=== PATIENT | female | born 1945 | race Caucasian/White ===

== ENCOUNTER 2020-12-29 12:29 | Inpatient (IN) | payer MEDICARE, OTHER, SELFPAY ==
[2020-12-29] VITALS (31 sets, daily range): BP systolic 162–215; BP diastolic 72–111; PULSE 76–101; RESP 13–23; TEMP 36.4–36.6; O2SAT 92–98; BMI 28.3
--- NOTE | ~2020-12-29 | CT_ITS ---
EXAMINATION: CTA chest PE protocol EXAM DATE: 12/29/2020 15:49 INDICATION: Shortness of breath, elevated D-dimer . Breast cancer. TECHNIQUE: Spiral CTA of the chest (pulmonary arteries) was performed with 100 cc Omnipaque 350 intr avenous contrast injection. Images were acquired during the pulmonary arterial phase. Coronal maxi mum intensity projection 3D-reconstructions were created by the technologist on dedicated workstation . Axial, coronal and sagittal reformatted images were reviewed. The dose-length product (DLP) for t his examination was 244.82 mGy-cm. The exposure was tailored according to patient size (auto mA exp osure control), and iterative reconstruction (ASIR) was used as additional dose reduction technique. There is no prior study for comparison. FINDINGS: There are no pulmonary emboli in the 1st through 3rd order (central and interlobar) pulmon lenin arteries. Some loss of attenuation in the segmental pulmonary arteries due to respiratory motion , but no intraluminal filling defects suspected. No thoracic aortic dissection. The lungs are louise r. Small to moderate right, trace left pleural effusions. Some scattered bibasilar linear subsegmen emery atelectasis. Basilar intralobular septal thickening and groundglass opacities appearance most con sistent with pulmonary edema. Left apical opacity probably scarring. Tracheobronchial tree is patent. There is no mediastinal, hilar or axillary lymphadenopathy. There is no pneumothorax. There is cardiomegaly. There is mild coronary arterial calcification, arterial sclerosis. Dense mitral annul ar calcifications. Contrast refluxing into the IVC. Liver cysts. There is thoracic spondylosis with out osteoblastic or osteolytic lesions identified. Left axillary surgical clips. IMPRESSION: 1. Findings consistent with CHF exacerbation. 2. Small right, trace left pleural effusions. 3. Bibasilar linear atelectasis. 4. No pulmonary emboli. Reviewed, dictated and finalized at location A.
--- NOTE | ~2020-12-29 | US_ITS ---
EXAMINATION: US venous doppler [facility] DATE: 12/31/2020 11:58 INDICATION: Bilateral lower limb swelling TECHNIQUE: Silverio scale images without and with compression and Doppler images of the bilateral lower e xtremity veins were obtained. COMPARISON: None FINDINGS: The right common femoral vein, profunda femoral vein, femoral vein, popliteal vein, peroneal trunk, p osterior tibial veins, and greater saphenous vein are patent. The left common femoral vein, profunda femoral vein, femoral vein, popliteal vein, peroneal trunk, po sterior tibial veins, and greater saphenous vein are patent. IMPRESSION: 1. Patent bilateral lower extremity veins. No evidence of deep venous thrombosis. Reviewed, dictated and finalized at location A. IMPRESSION: 1. Patent bilateral lower extremity veins. No evidence of deep venous thrombosi s.
--- NOTE | ~2020-12-29 | XR_ITS ---
EXAMINATION: XR chest 2V DATE: 12/29/2020 12:51 INDICATION: Shortness of breath and hypertension, history of breast cancer TECHNIQUE: PA and lateral views of the chest are obtained. COMPARISON: 06/03/2016 FINDINGS: The lungs are free of acute opacities. There are small pleural effusions. Pneumothorax is i dentified. The cardiomediastinal silhouette is normal. There is mild thoracic spondylosis. Deformity of the left breast and surgical clips in the left axilla are consistent with treatment for breast can cer. IMPRESSION: 1. Small pleural effusions. Reviewed, dictated and finalized at location A. IMPRESSION: 1. Small pleural effusions.
--- NOTE | 2020-12-29 12:31 | ECG_ITS ---
Measurements Intervals [place] Rate: 78 P: 66 [place]: 159 QRS: -15 QRSD: 106 T: 26 QT: 390 QTc: 445 Interpretive Statements SINUS RHYTHM POSSIBLE LEFT ATRIAL ENLARGEMENT INCOMPLETE RIGHT BUNDLE BRANCH BLOCK LEFT VENTRICULAR HYPERTROPHY CANNOT RULE OUT SEPTAL INFARCT, AGE INDETERMINATE BASELINE ARTIFACT- I, II, AVR ABNORMAL ECG Electronically Signed On 12-29-2020 20:51:18 CDT by Hari Brown D.O.
[2020-12-29 12:52] LABS: Basophils Percent Auto 0.4 % (0.2-1.2); Eosinophils Absolute Auto 0.1 K/mm3 (0-0.3); Eosinophils Percent Auto 1.4 % (0-4.4); Hematocrit 28.8 % (37.0-47.0); Hemoglobin 9.5 g/dL (12.0-15.0); Immature Granulocyte Absolute 0.02 K/mm3 (0.00-0.031); Immature Granulocyte Percent A 0.3 % (0-0.5); Lymphocytes Absolute Auto 1.49 K/mm3 (0.9-3.2); Lymphocytes Percent Auto 20.6 % (18.3-44.2); Mean Corpuscular Hemoglobin 30.5 pg (26-34); Mean Corpuscular Volume 92.6 fl (80-100); Mean Platelet Volume 12.9 fl (7.4-10.4); Monocytes Absolute Auto 0.3 K/mm3 (0.1-0.6); Monocytes Percent Auto 4.6 % (2.6-8.5); Neutrophils Absolute Auto 5.3 K/mm3 (1.3-6.7); Neutrophils Percent Auto 72.7 % (45.5-73.1); Platelet Count Result 204 k/mm3 (150-375); Red Blood Count 3.11 M/mm3 (4.2-5.4); Red Cell Distribution Width 13.4 % (11.5-14.5); White Blood Count 7.3 K/mm3 (4.5-10.0)
[2020-12-29 13:02] LABS: Anion Gap 9 mmol/L (8-16); Blood Urea Nitrogen 28 mg/dL (7-17); Calcium 9.9 mg/dL (8.4-10.2); Carbon Dioxide 25 mmol/L (22-30); Chloride 107 mmol/L (98-107); Estimated CRCL calculation 45 ml/min; Estimated Glomerular Filt Rate > 60; Glucose 91 mg/dL (65-105); Sodium 141 mmol/L (137-145)
[2020-12-29 13:13] LABS: Anisocytosis 1+ (NORMAL); Ovalocytes 1+ (NORMAL); Platelet Estimate Adequate (Adequate)
--- NOTE | 2020-12-29 13:33 | PC.NURSE ---
lab, baylee, Pavan I and BNP
[2020-12-29] MEDS: IPRATROPIUM BR 0.02% INH SOLN 0.5 MG/2.5 ML VIAL INHALATION (13:38)
[2020-12-29] MEDS: ALBUTEROL SULFATE NEB 2.5 MG/0.5 ML INH 5 MG INHALATION (13:38)
[2020-12-29 13:42] LABS: Alveolar/Arterial O2 Gradient 33.1 mmHg; Base Excess ABG -0.4 mEq/l (+/-2.0); Carboxyhemoglobin 0.3 % THb (0-2.0); Fractional Inspired Oxygen 21 %; HCO3 ABG 23.7 mEq/l (22.0-26.0); Methemoglobin ABG 0.2 %THb (0-1.5); Oxygen Content ABG 13.5 %vol (16.0-22.0); Oxygen Saturation ABG 95.1 % (95.0-100.0); Oxyhemoglobin 93.7 % THb (90.0-100.0); PCO2 ABG 36.8 mmHg (35.0-45.0); PO2 ABG 72.6 mmHg (80.0-100.0); PO2 FiO2 Ratio Arterial Blood 3.46 %; Reduced Hemoglobin 5.8 %THb (0-5.0); Total Hemoglobin 10.2 g/dL (12.0-18.0); pH ABG 7.427 (7.350-7.450)
[2020-12-29 13:43] LABS: Device ROOM AIR; Modified Allen's Test Pass; Site Drawn RIGHT RADIAL
--- NOTE | 2020-12-29 13:51 | ED.SOB ---
HPI - SOB/Dyspnea General Chief Complaint: Shortness of Breath/Dyspnea Stated Complaint: having trouble breathing Time Seen by Provider: 12/29/20 13:14 Source: patient Mode of arrival: ambulatory Limitations: no limitations History of Present Illness HPI Narrative: Patient is a 75-year-old female complaining of shortness of breath, wheezing, started yesterday. Patient denies any cough, congestion, chest pain, abdominal pain, nausea, vomiting, fever or chills. Patient states that she is actually feeling better and that his shortness of breath almost resolved. Related Data Home Medications Medication Instructions Recorded Confirmed ascorbic acid (vitamin C) 500 mg 500 mg PO DAILY 07/20/20 12/13/20 tablet aspirin 81 mg tablet,delayed 81 mg PO DAILY 07/20/20 12/13/20 release calcium carbonate 600 mg calcium 600 mg PO DAILY 07/20/20 12/13/20 (1,500 mg) tablet cholecalciferol (vitamin D3) 125 125 mcg PO DAILY 07/20/20 12/13/20 mcg (5,000 unit) capsule garlic 1,000 mg capsule 1,000 mg PO DAILY 07/20/20 12/13/20 magnesium gluconate 27 mg 27 mg PO DAILY tablet 07/20/20 12/13/20 magnesium (500 mg) tablet multivitamin 1 tablet PO DAILY 07/20/20 12/13/20 omega-3 fatty acids 1,000 mg 1,000 mg PO DAILY 07/20/20 12/13/20 capsule Allergies Allergy/AdvReac Type Severity Reaction Status Date / Time No Known Allergies Allergy Verified 12/29/20 12:30 Review of Systems Review of Systems: All systems reviewed & are unremarkable except as noted in HPI and below Constitutional: Constitutional: Denies body ache(s), Denies chills, Denies excessive sweating, Denies fatigue, Denies fever(s), Denies headache(s), Denies lethargy, Denies malaise, Denies weakness and Denies weight loss Eyes: Eyes: Denies blurry vision, Denies change in vision and Denies loss of vision ENT: Denies dizziness, Denies ear discharge, Denies headache(s), Denies lip swelling, Denies epistaxis, Denies nasal congestion, Denies neck pain, Denies throat swelling and Denies tongue swelling Cardiovascular: Cardiovascular: Denies chest pain, Denies chest pain at rest, Denies chest pain with activity, Denies diaphoresis, Denies rapid heart rate, Denies edema, Denies irregular heart rhythm, Denies lightheadedness and Denies palpitations Respiratory: Respiratory: Denies chest congestion, Denies cough and Denies hemoptysis Gastrointestinal: Gastrointestinal: Denies abdominal pain, Denies melena, Denies hematochezia, Denies diarrhea, Denies nausea, Denies vomiting and Denies hematemesis Musculoskeletal: Musculoskeletal: Denies abnormal gait, Denies deformity, Denies joint swelling, Denies limited range of motion, Denies neck pain and Denies numbness Neurologic: Denies Abnormal speech present, Denies abnormal gait, Denies confusion, Denies dizziness, Denies headache(s), Denies focal weakness, Denies loss of vision, Denies numbness, Denies Other visual disturbances, Denies Sensory deficit (Neuro) and Denies weakness Psychiatric: Psychiatric: Denies confusion, Denies depression, Denies auditory hallucinations, Denies homicidal ideation and Denies suicidal ideation Endocrine: Endocrine: Denies cold intolerance, Denies excessive sweating, Denies fatigue, Denies heat intolerance and Denies palpitations Hematologic/Lymphatic: Hematologic/Lymphatic: Denies easy bleeding and Denies easy bruising Allergic/Immunologic: Allergic/Immunologic: Denies lip swelling, Denies throat swelling and Denies tongue swelling PMFSH Past Medical History Medical History Breast cancer Fracture of wrist Hx of skin malignancy Hypertension Jugular venous distension (JVD) Skin cancer Vitamin D deficiency, unspecified Surgical History Surgical History History of carpal tunnel surgery 2001 & 2002 History of lumpectomy of left breast 1994 Hx of cataract extraction 2009; bilateral
[2020-12-29 13:53] LABS: NT Pro B Type Natriuretic Pept 6910 pg/mL (5-100); Troponin I 0.018 ng/mL (0.000-0.034)
[2020-12-29 13:56] LABS: INR 0.9; Partial Thromboplastin Time 24.3 SECONDS (22.3-36.8); Prothrombin Time 11.8 Seconds (11.1-14.7)
[2020-12-29 13:59] LABS: D Dimer 1.95 ug/mL (<0.48)
[2020-12-29] MEDS: methylPREDNISolone SOD SUCC 125 MG VIAL IV PUSH (14:07)
[2020-12-29 14:25] LABS: Lactic Acid Reflex 1.5 mmol/L (0.7-2.1)
--- NOTE | 2020-12-29 15:58 | PC.NURSE ---
In to update and check on patient, note sp02 89% on room air with good pleth. Pt placed on 2L/NC and Dr. Kumari made aware.
[2020-12-29] MEDS: FUROSEMIDE INJ 40 MG/4 ML VIAL IV PUSH ×2 (16:41→22:27)
--- NOTE | 2020-12-29 16:43 | PC.NURSE ---
Marlena given IVP for fluid. Dr. Kumari at bedside discussing plan of care. Commode and hat to measure urine brought to bedside.
[2020-12-29] MEDS: LABETALOL HCL INJ 100 MG/20 ML VIAL 20 MG IV PUSH (18:12)
--- NOTE | 2020-12-29 19:52 | PC.NURSE ---
This patient, Terri Oconnell, was admitted to IMU Room 201-01. Patient/family oriented to hospital policies and general routines including ID bracelet, bed and alarms, visiting hours, pain management, procedures, bathroom and other care routines, personal items, smoking policy, room service/diet, and visiting hours. Information on how to activate the Rapid Response Team has been discussed. Patient/Family are encouraged to report perceived risks to care and to ask questions if they do not understand what they are told or what they should do.
--- NOTE | 2020-12-29 21:16 | PM.IMHP ---
H&P: HPI History of Present Illness Date/Time: 12/29/20 21:16Nita is a 75-year-old female patient who has a past medical history of hypertension. The patient denies any history of CHF. The patient stated that she had some edema to her lower extremities approximately 1 year's on the started getting her blood pressure medication. The patient stated that yesterday she started to become short of breath. And her legs have become edematous. She has no history of any DVTs. She does have lymphedema in her left arm due to lumpectomy from her breast cancer. The patient's blood pressure was elevated in the emergency room. She had already taken her lisinopril metoprolol today. She was given labetalol for elevated blood pressure in the emergency room. She was given Solu-Medrol a neb treatment in the emergency room as well as IV Lasix. Chest x-ray was read as small pleural effusions. CTA was read as findings consistent with CHF exacerbation. Small right trace the pleural effusions. Bibasilar linear atelectasis. No pulmonary emboli. The patient is being admitted to observation status on the date of surgery was 12/29/2020 Chief Complaint: shortness of breath Review of Systems Review of Systems: All systems reviewed & are unremarkable except as noted in HPI and below Constitutional: Constitutional: Reports as per HPI and Reports no additional constitutional complaints Eyes: Eyes: Reports as per HPI and Reports no additional eye complaints ENT: Reports system reviewed and no additional complaints, except as documented and Reports Normal hearing present Cardiovascular: Cardiovascular: Reports no additional cardiovascular complaints Respiratory: Respiratory: Reports no additional respiratory complaints and Reports no additional respiratory complaints Gastrointestinal: Gastrointestinal: Reports as per HPI and Reports no additional gastrointestinal complaints Musculoskeletal: Musculoskeletal: Reports no additional musculoskeletal complaints Integumentary/Breasts: Skin/Breast: Reports system reviewed and no additional complaints, except as docu and Reports as per HPI Neurologic: Reports system reviewed and no additional complaints, except as documented, Reports as per HPI and Reports Normal hearing present Psychiatric: Psychiatric: Reports no additional psychiatric complaints and Reports as per HPI Endocrine: Endocrine: Reports no additional endocrine complaints Hematologic/Lymphatic: Hematologic/Lymphatic: Reports no additional hematologic/lymphatic complaints Allergic/Immunologic: Allergic/Immunologic: Reports no additional allergic/immunologic complaints [facility] Past Medical History Medical History (Updated 12/29/20 @ 21:23 by Keke Edwards NP) Breast cancer chemo and radiation Fracture of wrist Hx of skin malignancy Hypertension Hypothyroidism Jugular venous distension (JVD) Skin cancer Vitamin D deficiency, unspecified Surgical History Surgical History (Updated 12/29/20 @ 21:23 by Keke Edwards NP) History of carpal tunnel surgery 2001 & 2002 History of lumpectomy of left breast 1994 History of surgery on wrist due to a fracture Hx of cataract extraction 2009; bilateral Family History Family History (Updated 12/29/20 @ 20:10 by Mercedez Paez RN) Mother , Heart, Colon CHF (congestive heart failure) Colon cancer Father , Heart, Prostate FH: CABG (coronary artery bypass surgery) Social History Social History (Updated 12/29/20 @ 21:26 by Keke Edwards NP) Social History: patient is a lifelong nonsmoker. the patient lives with her and they have been for 51 years now. They have no children. 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 She is a lifelong nonsmoker. She does not use any alcohol marijuana or illicit drugs. Smoking status: Never smoker Second hand tobacco smoke exposure: No Alcohol intake: never Substance use: kris
[2020-12-29] MEDS: lisinopriL 20 MG TABLET PO (22:27)
[2020-12-30] VITALS (12 sets, daily range): BP systolic 140–154; BP diastolic 63–71; PULSE 63–87; RESP 16–18; TEMP 36–36.6; O2SAT 97–100
[2020-12-30 05:07] LABS: Alanine Aminotransferase 17 U/L (4-35); Albumin Level 3.1 g/dL (3.5-5.1); Alkaline Phosphatase 43 U/L (38-126); Anion Gap 8 mmol/L (8-16); Aspartate Amino Transferase 29 U/L (14-36); Bilirubin,Total 0.4 mg/dL (0.2-1.3); Blood Urea Nitrogen 35 mg/dL (7-17); Calcium 8.7 mg/dL (8.4-10.2); Carbon Dioxide 22 mmol/L (22-30); Chloride 107 mmol/L (98-107); Estimated CRCL calculation 41 ml/min; Estimated Glomerular Filt Rate 54; Glucose 148 mg/dL (65-105); Magnesium 1.9 mg/dL (1.6-2.3); Potassium 3.9 mmol/L (3.4-5.0); Sodium 137 mmol/L (137-145)
[2020-12-30] MEDS: LEVOTHYROXINE SODIUM 25 MCG TABLET PO (06:05)
[2020-12-30 06:14] LABS: Basophils Percent Auto 0.2 % (0.2-1.2); Hematocrit 27.3 % (37.0-47.0); Hemoglobin 8.6 g/dL (12.0-15.0); Immature Granulocyte Absolute 0.03 K/mm3 (0.00-0.031); Immature Granulocyte Percent A 0.5 % (0-0.5); Lymphocytes Absolute Auto 0.56 K/mm3 (0.9-3.2); Lymphocytes Percent Auto 8.8 % (18.3-44.2); Mean Corpuscular HGB Conc 31.5 g/dl (32-36); Mean Corpuscular Hemoglobin 30.1 pg (26-34); Mean Corpuscular Volume 95.5 fl (80-100); Monocytes Absolute Auto 0.2 K/mm3 (0.1-0.6); Monocytes Percent Auto 3.3 % (2.6-8.5); Neutrophils Absolute Auto 5.6 K/mm3 (1.3-6.7); Neutrophils Percent Auto 87.2 % (45.5-73.1); Platelet Count Result 165 k/mm3 (150-375); Red Blood Count 2.86 M/mm3 (4.2-5.4); Red Cell Distribution Width 13.4 % (11.5-14.5); White Blood Count 6.4 K/mm3 (4.5-10.0)
[2020-12-30] MEDS: ENOXAPARIN 40 MG/0.4 ML SYRINGE SUB-Q (09:03)
[2020-12-30] MEDS: ASPIRIN 81 MG ENTERIC TABLET PO (09:04)
[2020-12-30] MEDS: OMEGA 3 POLYUNSAT FATTY ACIDS 1 GM CAP PO (09:04)
[2020-12-30] MEDS: METOPROLOL SUCCINATE EXT REL 50 MG TABCR PO (09:04)
[2020-12-30] MEDS: CHOLECALCIFEROL 1,000 UNITS TABLET 5000 UNITS PO (09:04)
[2020-12-30] MEDS: CALCIUM CARBONATE (OSCAL) 500 MG TABLET PO (09:05)
[2020-12-30] MEDS: MULTIVITAMINS THERAPEUTIC TAB (*BKC) 1 TABLET PO (09:05)
[2020-12-30] MEDS: MAGNESIUM 27 MG TABLET (500 MG MAG GLUCONATE) PO (09:05)
[2020-12-30] MEDS: lisinopriL 20 MG TABLET PO ×2 (09:05→17:34)
[2020-12-30] MEDS: ASCORBIC ACID 500 MG TABLET PO (09:05)
[2020-12-30] MEDS: FUROSEMIDE INJ 40 MG/4 ML VIAL IV PUSH (09:22)
--- NOTE | 2020-12-30 09:52 | PM.CNCAR ---
Assessment and Plan Additional Plan this is a 75-year-old lady with: Longstanding hypertension being treated with lisinopril and metoprolol as well as p.r.n. furosemide for edema. She came into the hospital with increasing shortness of breath and some mild lower extremity edema which appears to have rib been resolved very quickly with intravenous furosemide. One would therefore most likely presume this are is due to hypertensive heart disease and probably diastolic dysfunction. I do not hear any physical exam evidence to suggest systolic failure. The patient of course should have an echocardiogram done to assess the cardiac structural basis of this but this being the 30 of December holiday and this ultrasound is clearly not an urgent matter I do not expect this is going to happen today. Patient in clinically appears to be stable enough to be discharged and have this evaluation done as an outpatient but obviously ultrasound would not happen nearly as quickly in the outpatient setting. It is the patient's strong preference to have this done sooner than that so we will keep her in the hospital the ultrasound will be done tomorrow and I will leave further recommendations after Review of that exam. In the meantime I am going to stop her IV furosemide she appears to be euvolemic at this moment and I believe we would precipitate a prerenal state of we keep giving her IV furosemide any further. I will switch her to an oral regimen starting tomorrow. Thank you for asking me to see her in consultation Carlo Horne MD [facility] History of Present Illness History of Present Illness Consult date/time: 12/30/20 09:52 Reason For Visit: acute chf Narrative: This is a 75-year-old woman that I am seeing at the request of the hospitalist this morning she was admitted to the hospital yesterday evening after being seen in the emergency room with complaining of shortness of breath and was felt to have some evidence of congestive heart failure. She does not have any previous history of any cardiac problems that she is aware of. This is a lady with longstanding hypertension and a previous history of breast cancer. She states she was under the care of Dr. Savage for many years prior to his fci and was treated medically for hypertension. She states she was her impression her blood pressure is generally well controlled when she would have follow-up visits and there was no concern ever regarding the condition of her heart. She stated that last summer she did have an episode where she had some increasing lower extremity edema that was not a matter of great concern but some furosemide was prescribed which then she was told to take in a p.r.n. fashion. Because of the lower extremity edema amlodipine was taken off of her medication list at that time as well. She has denies any symptoms of chest pain pressure or heaviness she denies any orthopnea or PND. In the last 1-2 weeks he is having more difficulty with shortness of breath and she was coughing couple of nights this week where she sat up in a recliner. She thought she might have pneumonia so she went to an urgent care center yesterday after evaluation she was sent to the emergency room where she was given the diagnosis of CHF and admitted to the hospital. Her chest x-ray shows a normal-appearing cardiac silhouette some very small pleural effusions and postop changes from mastectomy. She was given some intravenous furosemide in the emergency room and another dose this morning she said this has completely resolved her shortness of breath and she feels fine this morning. An echocardiogram was ordered but this being Thursday and the 30 of December it is not going to happen today. In this situation I am seeing her in consultation. Review of Systems Constitutional: Constitutional: Reports no additional constitutional complaints Eyes: Eyes: Reports no additional eye complaints ENT: Reports system reviewed and no additi
--- NOTE | 2020-12-30 13:40 | PM.IMPN ---
Progress Note: A&P Assessment and Plan (1) Acute CHF: Qualifiers: Heart failure type: unspecified Qualified Code(s): I50.9 - Heart failure, unspecified Code(s): I50.9 - Heart failure, unspecified Status: Acute Assessment and Plan: IMPROVED CONTINUE PRESENT MANAGEMENT FOLLOW CARDIOLOGY RECOMMENDATION cardiology has been consulted. The patient has already been on lisinopril metoprolol. Will continue with that. Will get an echo. The patient had been on oral medications and she had increased swelling to her lower extremities. Her feet have gone down since she has taken IV Lasix. I did hear a murmur that sounds like some aortic regurgitation. The patient stated she has not had an echo and a long time. So I ordered an echo I am not sure if it will be performed on a Thursday or not. (2) Hypertensive urgency: Code(s): I16.0 - Hypertensive urgency Status: Acute Assessment and Plan: CONTINUE HOME MEDS CONTINUE TO MONITOR The patient was given labetalol. She took her metoprolol and her lisinopril this morning. She will need another dose tonight. (3) Hypothyroidism: Code(s): E03.9 - Hypothyroidism, unspecified Status: Chronic Assessment and Plan: The patient was recently diagnosed with hypothyroidism. Will check her thyroid level continue the levothyroxine. (4) Anemia: Code(s): D64.9 - Anemia, unspecified Status: Acute Assessment and Plan: H&H is 9.5 and 28.8 Subjective Date/time seen: 12/30/20 13:40 I FEEL WELL Review of Systems Review of Systems: All systems reviewed & are unremarkable except as noted in HPI and below Constitutional: Constitutional: Reports as per HPI and Reports no additional constitutional complaints Eyes: Eyes: Reports as per HPI and Reports no additional eye complaints ENT: Reports system reviewed and no additional complaints, except as documented and Reports Normal hearing present Cardiovascular: Cardiovascular: Reports no additional cardiovascular complaints Respiratory: Respiratory: Reports no additional respiratory complaints and Reports no additional respiratory complaints Gastrointestinal: Gastrointestinal: Reports as per HPI and Reports no additional gastrointestinal complaints Musculoskeletal: Musculoskeletal: Reports no additional musculoskeletal complaints Integumentary/Breasts: Skin/Breast: Reports system reviewed and no additional complaints, except as docu and Reports as per HPI Neurologic: Reports system reviewed and no additional complaints, except as documented, Reports as per HPI and Reports Normal hearing present Psychiatric: Psychiatric: Reports no additional psychiatric complaints and Reports as per HPI Endocrine: Endocrine: Reports no additional endocrine complaints Hematologic/Lymphatic: Hematologic/Lymphatic: Reports no additional hematologic/lymphatic complaints Allergic/Immunologic: Allergic/Immunologic: Reports no additional allergic/immunologic complaints Exam Const: General: cooperative, healthy appearing, comfortable, no acute distress, well developed, awake and Physically active Nutritional Appearance: average body habitus and well nourished Orientation/consciousness: oriented to person, oriented to place, oriented to time and patient oriented x3 Limitations: no limitations HENMT: Head: normal to inspection, No palpable skull fracture present, normocephalic and atraumatic Ears: hearing grossly normal bilaterally and external ears normal General nose exam: Normal external nose present, Normal nares present and No nasal polyps present Mouth: Yes Normal oral and palatal mucosa present Eyes: General: appearance normal, both eyes and all related structures Alignment and Position: alignment normal Periorbital: periorbital findings normal Eyelids: eyelids normal Conjunctivae: conjunctivae normal Sclera: sclerae normal Cornea: corneas normal Pupils: Equal, ro
--- NOTE | 2020-12-30 17:45 | PC.NURSE ---
This patient, Terri Oconnell, was transferred to [facility] on 12/30/20 at 1745. Personal belongings sent with patient. Report given to JAN May. Appropriate documentation sent with patient.
[2020-12-31] VITALS (14 sets, daily range): BP systolic 158–168; BP diastolic 71–84; PULSE 67–91; RESP 18–20; TEMP 36.2–37.2; O2SAT 95–100
--- NOTE | 2020-12-31 | ECHO_ITS ---
Patient Info Name: Terri Oconnell Age: 75 years : 1945 Gender: Female Ht: 63 in Wt: 160 lbs BSA: 1.82 m2 HR: 101 bpm BP: 159 / 82 mmHg Heart Rhythm: Sinus Rhythm Technical Quality: Good Exam Date: 12/31/2020 8:16 AM Exam Location: [facility] Patient Status: Inpatient Admit Date: 12/30/2020 Staff Ordering Physician: Keke Edwards NP Assisted Living Coordinator: Kenzie Denton RDCS Attending Provider: Jr Galindo MD Referring Physician: Jerry FRANCISCO; Exam Type: CA echo doppler color flow Study Info Complete two-dimensional, color flow and Doppler transthoracic echocardiogram is performed. Summary 1. Complete two-dimensional, color flow and Doppler transthoracic echocardiogram is performed. 2. Left ventricular chamber dimension is mildly enlarged. 3. Left ventricular systolic function is normal, estimated at 50-55%. 4. Left atrial chamber dimension is moderately enlarged. 5. There is mild mitral valve regurgitation. Left Ventricle Left ventricular chamber dimension is mildly enlarged. Left ventricular systolic function is normal, estimated at 50-55%. The left ventricular diastolic function is grade I diastolic dysfunction. Right Ventricle Right ventricular chamber dimension is normal. Left Atria Left atrial chamber dimension is moderately enlarged. Right Atria Right atrial chamber dimension is normal. Aortic Valve The aortic valve is normal. Pulmonic Valve The pulmonic valve is normal. Mitral Valve The mitral valve has normal leaflets. There is mild mitral valve regurgitation. The mitral valve annulus is mildly calcified. Tricuspid Valve The tricuspid valve leaflets are normal. Pericardium/Pleural The pericardium appears normal. Aorta The aortic root size at the sinus of Valsalva is normal. Left Ventricular Outflow Tract Name Value Normal LVOT 2D LVOT Diameter 2.4 cm LVOT Doppler LVOT Peak Gradient 5 mmHg LVOT Mean Gradient 3 mmHg LVOT VTI 20 cm LVOT VTI/AV VTI Ratio 0.6 LVOT Stroke Volume 92 ml LVOT CO 7.5 l/min LVOT CI 4.1 l/min/m2 Pulmonic Valve Name Value Normal PV Doppler PV Peak Gradient 4 mmHg Mitral Valve Name Value Normal MV Doppler MV Decel [place] 1,197 cm/s2 MV PHT 26 ms MV Area (PHT) 8.6 cm2 4.0-5.0 MV Diastolic Func
[2020-12-31] MEDS: LEVOTHYROXINE SODIUM 25 MCG TABLET PO (05:55)
[2020-12-31] MEDS: lisinopriL 20 MG TABLET PO ×2 (08:49→16:07)
[2020-12-31] MEDS: MAGNESIUM 27 MG TABLET (500 MG MAG GLUCONATE) PO (08:50)
[2020-12-31] MEDS: ASCORBIC ACID 500 MG TABLET PO (08:50)
[2020-12-31] MEDS: ASPIRIN 81 MG ENTERIC TABLET PO (08:50)
[2020-12-31] MEDS: METOPROLOL SUCCINATE EXT REL 50 MG TABCR PO (08:50)
[2020-12-31] MEDS: OMEGA 3 POLYUNSAT FATTY ACIDS 1 GM CAP PO (08:50)
[2020-12-31] MEDS: FUROSEMIDE 40 MG TABLET PO (08:50)
[2020-12-31] MEDS: CALCIUM CARBONATE (OSCAL) 500 MG TABLET PO (08:50)
[2020-12-31] MEDS: MULTIVITAMINS THERAPEUTIC TAB (*BKC) 1 TABLET PO (08:50)
[2020-12-31] MEDS: CHOLECALCIFEROL 1,000 UNITS TABLET 5000 UNITS PO (08:51)
[2020-12-31] MEDS: ENOXAPARIN 40 MG/0.4 ML SYRINGE SUB-Q (08:51)
--- NOTE | 2020-12-31 11:27 | PM.IMPN ---
Progress Note: A&P Assessment and Plan (1) Acute CHF: Qualifiers: Heart failure type: unspecified Qualified Code(s): I50.9 - Heart failure, unspecified Code(s): I50.9 - Heart failure, unspecified Status: Acute Assessment and Plan: IMPROVED CONTINUE PRESENT MANAGEMENT FOLLOW CARDIOLOGY RECOMMENDATION ECHOCARDIOGRAM TODAY cardiology has been consulted. The patient has already been on lisinopril metoprolol. Will continue with that. Will get an echo. The patient had been on oral medications and she had increased swelling to her lower extremities. Her feet have gone down since she has taken IV Lasix. I did hear a murmur that sounds like some aortic regurgitation. The patient stated she has not had an echo and a long time. So I ordered an echo I am not sure if it will be performed on a Thursday or not. (2) Hypertensive urgency: Code(s): I16.0 - Hypertensive urgency Status: Acute Assessment and Plan: CONTINUE HOME MEDS CONTINUE TO MONITOR BETTER CONTROLLED (3) Hypothyroidism: Code(s): E03.9 - Hypothyroidism, unspecified Status: Chronic Assessment and Plan: FOLLOW-UP IN OUTPATIENT SETTING STABLE The patient was recently diagnosed with hypothyroidism. Will check her thyroid level continue the levothyroxine. (4) Anemia: Code(s): D64.9 - Anemia, unspecified Status: Acute Assessment and Plan: H&H is 9.5 and 28.8 FOLLOW-UP IN OUTPATIENT SETTING Subjective Date/time seen: 12/31/20 11:27 I FEEL MUCH BETTER Review of Systems Review of Systems: All systems reviewed & are unremarkable except as noted in HPI and below Constitutional: Constitutional: Reports as per HPI and Reports no additional constitutional complaints Eyes: Eyes: Reports as per HPI and Reports no additional eye complaints ENT: Reports system reviewed and no additional complaints, except as documented and Reports Normal hearing present Cardiovascular: Cardiovascular: Reports no additional cardiovascular complaints Respiratory: Respiratory: Reports no additional respiratory complaints and Reports no additional respiratory complaints Gastrointestinal: Gastrointestinal: Reports as per HPI and Reports no additional gastrointestinal complaints Musculoskeletal: Musculoskeletal: Reports no additional musculoskeletal complaints Integumentary/Breasts: Skin/Breast: Reports system reviewed and no additional complaints, except as docu and Reports as per HPI Neurologic: Reports system reviewed and no additional complaints, except as documented, Reports as per HPI and Reports Normal hearing present Psychiatric: Psychiatric: Reports no additional psychiatric complaints and Reports as per HPI Endocrine: Endocrine: Reports no additional endocrine complaints Hematologic/Lymphatic: Hematologic/Lymphatic: Reports no additional hematologic/lymphatic complaints Allergic/Immunologic: Allergic/Immunologic: Reports no additional allergic/immunologic complaints Exam Narrative: Exam Narrative: SITTING IN BED Const: General: cooperative, healthy appearing, comfortable, no acute distress, well developed, awake and Physically active Nutritional Appearance: average body habitus and well nourished Orientation/consciousness: oriented to person, oriented to place, oriented to time and patient oriented x3 Limitations: no limitations HENMT: Head: normal to inspection, No palpable skull fracture present, normocephalic and atraumatic Ears: hearing grossly normal bilaterally and external ears normal General nose exam: Normal external nose present, Normal nares present and No nasal polyps present Mouth: Yes Normal oral and palatal mucosa present Eyes: General: appearance normal, both eyes and all related structures Alignment and Position: alignment normal Periorbital: periorbital findings normal Eyelids: eyelids normal Conjunctivae: conjunctivae normal Sclera: sclerae normal
--- NOTE | 2020-12-31 14:44 | PM.PNCARD ---
Progress Note: A&P Additional Plan 75-year-old lady with longstanding hypertension reasonable blood pressure control with the combination of lisinopril and metoprolol. She does have very mild LV enlargement and a normal ejection fraction. As I mentioned above I would recommend advancing her furosemide dosage to 40 mg. From my perspective she is stable for discharge and follow-up can be with her PCP, Dr. Mcmahon. Carlo Horne MD [facility] Subjective Date/time seen: Date of service:12/31/20 14:44 Interval history: Follow-up visit in this 75-year-old lady with: Some shortness of breath and modest lower extremity edema in the setting of longstanding hypertension. Echocardiogram done today demonstrates very mild left ventricular dysfunction by virtue of slightly enlarged LV diameter. The calculated ejection fraction is still within normal range but her LV dimension is just slightly enlarged. Spent a long time discussing this finding with the patient and the in the [facility] room this afternoon. At this point I would recommend continuing the Christiano inhibitor and the beta-rossy and a slightly higher dose of furosemide at 40 mg per day. These are findings compatible with hypertensive heart disease and very modest LV systolic dysfunction. Her PCP, Dr. Mcmahon is more than capable of following up with this. Exam Const: General: comfortable and no acute distress Other: Pleasant comfortable elderly lady no distress of any kind HENMT: Mouth: Yes moist mucous membranes Eyes: Sclera: sclerae normal Pupils: Equal, round and reactive pupils present Neck: Neck: supple and no JVD Thyroid: thyroid normal Resp: Effort & Inspection: normal respiratory effort Auscultation: clear to auscultation bilaterally Cardio: Rate: regular rate Rhythm: regular rhythm GI: GI Palp: Yes Soft to palpation Auscultation: normal bowel sounds Neuro: Cognition (Neuro): normal cognition Objective Data Vital Signs Vital Signs: Vital Signs - 24 hr 12/30/20 16:00 12/30/20 17:07 12/30/20 20:00 Temperature 36.0 C L 36.1 C L Pulse Rate 85 71 69 Respiratory Rate 18 18 Blood Pressure 154/70 H 149/68 H Pulse Oximetry 98 99 12/31/20 00:00 12/31/20 00:02 12/31/20 04:00 Temperature 36.2 C L Pulse Rate 91 78 79 Respiratory Rate 18 Blood Pressure 158/77 H Pulse Oximetry 97 12/31/20 04:28 12/31/20 08:00 12/31/20 08:50 Temperature 36.2 C L Pulse Rate 85 90 85 Respiratory Rate 18 Blood Pressure 159/82 H Pulse Oximetry 98 12/31/20 10:00 12/31/20 12:00 12/31/20 14:00 Temperature 37.1 C 36.4 C L Pulse Rate 83 67 68 Respiratory Rate 20 18 Blood Pressure 161/71 H 166/71 H Pulse Oximetry 99 99 Intake/Output Intake/Output: Intake & Output 12/28/20 12/29/20 12/30/20 12/31/20 23:59 23:59 23:59 23:59 Intake Total 1680 540 Output Total 2600 1850 1550 Balance -2600 -170 -1010 Meds/Results Medications: Active Medications Generic Name Dose Route Start Last Admin Trade Name Freq PRN Reason Stop Dose Admin Ascorbic Acid 500 mg 12/30/20 09:00 12/31/20 08:50 Ascorbic Acid 500 Mg Tablet PO 500 mg DAILY RUPERT Administration Aspirin 81 mg 12/30/20 09:00 12/31/20 08:50 Aspirin 81 Mg Enteric Tablet PO 81 mg DAILY RUPERT Administration Calcium Carbonate 500 mg 12/30/20 09:00 12/31/20 08:50 Calcium Carbonate (Oscal) 500 Mg Tablet PO 500 mg QAM RUPERT Administration Enoxaparin Sodium 40 mg 12/30/20 09:00 12/31/20 08:51 Enoxaparin 40 Mg/0.4 Ml Syringe SUB-Q 40 mg DAILY RUPERT Administration Fish Oil 1 gm 12/30/20 09:00 12/31/20 08:50 [place] 3 Polyunsat Fatty Acids 1 Gm Cap PO 1 gm DAILY RUPERT Administration Furosemide 40 mg 12/31/20 09:00 12/31/20 08:50 Furosemide 40 Mg Tablet PO 40 mg DAILY RUPERT Administration Hydralazine HCl 10 mg 12/29/20 21:13 Hydralazine Hcl 20 Mg/Ml Vial IV PUSH Q8H PRN Blood Pressure - High Levothyroxi
[2021-01-01] VITALS: PULSE 75
[2021-01-01 04:00] VITALS: PULSE 88
[2021-01-01 04:15] VITALS: BP 162/75; PULSE 86; RESP 18; TEMP 36.4; O2SAT 98
[2021-01-01] MEDS: LEVOTHYROXINE SODIUM 25 MCG TABLET PO (05:40)
[2021-01-01 07:47] VITALS: PULSE 79
[2021-01-01] MEDS: lisinopriL 20 MG TABLET PO (07:47)
[2021-01-01] MEDS: METOPROLOL SUCCINATE EXT REL 50 MG TABCR PO (07:47)
[2021-01-01] MEDS: MAGNESIUM 27 MG TABLET (500 MG MAG GLUCONATE) PO (07:47)
[2021-01-01] MEDS: MULTIVITAMINS THERAPEUTIC TAB (*BKC) 1 TABLET PO (07:47)
[2021-01-01] MEDS: CALCIUM CARBONATE (OSCAL) 500 MG TABLET PO (07:48)
[2021-01-01] MEDS: ASPIRIN 81 MG ENTERIC TABLET PO (07:48)
[2021-01-01] MEDS: OMEGA 3 POLYUNSAT FATTY ACIDS 1 GM CAP PO (07:48)
[2021-01-01] MEDS: ENOXAPARIN 40 MG/0.4 ML SYRINGE SUB-Q (07:48)
[2021-01-01] MEDS: FUROSEMIDE 40 MG TABLET PO (07:48)
[2021-01-01] MEDS: ASCORBIC ACID 500 MG TABLET PO (07:48)
[2021-01-01] MEDS: CHOLECALCIFEROL 1,000 UNITS TABLET 5000 UNITS PO (07:48)
--- NOTE | 2021-01-01 08:01 | PM.DS ---
DS: Admitting Diagnosis Admitting Diagnosis Admitting Diagnosis: (1) Acute CHF: Qualifiers: Heart failure type: unspecified Qualified Code(s): I50.9 - Heart failure, unspecified Code(s): I50.9 - Heart failure, unspecified Status: Acute Assessment and Plan: cardiology has been consulted. The patient has already been on lisinopril metoprolol. Will continue with that. Will get an echo. The patient had been on oral medications and she had increased swelling to her lower extremities. Her feet have gone down since she has taken IV Lasix. I did hear a murmur that sounds like some aortic regurgitation. The patient stated she has not had an echo and a long time. So I ordered an echo I am not sure if it will be performed on a Thursday or not. (2) Hypertensive urgency: Code(s): I16.0 - Hypertensive urgency Status: Acute Assessment and Plan: The patient was given labetalol. She took her metoprolol and her lisinopril this morning. She will need another dose tonight. (3) Hypothyroidism: Code(s): E03.9 - Hypothyroidism, unspecified Status: Chronic Assessment and Plan: The patient was recently diagnosed with hypothyroidism. Will check her thyroid level continue the levothyroxine. (4) Anemia: Code(s): D64.9 - Anemia, unspecified Status: Acute Assessment and Plan: H&H is 9.5 and 28.8 DS: Discharge Diagnosis Discharge Diagnosis (1) Acute CHF: Qualifiers: Heart failure type: unspecified Qualified Code(s): I50.9 - Heart failure, unspecified Code(s): I50.9 - Heart failure, unspecified Status: Acute Assessment and Plan: IMPROVED CONTINUE PRESENT MANAGEMENT FOLLOW CARDIOLOGY RECOMMENDATION ECHOCARDIOGRAM TODAY cardiology has been consulted. The patient has already been on lisinopril metoprolol. Will continue with that. Will get an echo. The patient had been on oral medications and she had increased swelling to her lower extremities. Her feet have gone down since she has taken IV Lasix. I did hear a murmur that sounds like some aortic regurgitation. The patient stated she has not had an echo and a long time. So I ordered an echo I am not sure if it will be performed on a Thursday or not. (2) Hypertensive urgency: Code(s): I16.0 - Hypertensive urgency Status: Acute Assessment and Plan: CONTINUE HOME MEDS CONTINUE TO MONITOR BETTER CONTROLLED (3) Hypothyroidism: Code(s): E03.9 - Hypothyroidism, unspecified Status: Chronic Assessment and Plan: FOLLOW-UP IN OUTPATIENT SETTING STABLE The patient was recently diagnosed with hypothyroidism. Will check her thyroid level continue the levothyroxine. (4) Anemia: Code(s): D64.9 - Anemia, unspecified Status: Acute Assessment and Plan: H&H is 9.5 and 28.8 FOLLOW-UP IN OUTPATIENT SETTING DS: Summary Hospital Course Reason for hospitalization: Shortness of breath Hospital Course: 12/29/20 21:16Nita is a 75-year-old female patient who has a past medical history of hypertension. The patient denies any history of CHF. The patient stated that she had some edema to her lower extremities approximately 1 year's on the started getting her blood pressure medication. The patient stated that yesterday she started to become short of breath. And her legs have become edematous. She has no history of any DVTs. She does have lymphedema in her left arm due to lumpectomy from her breast cancer. The patient's blood pressure was elevated in the emergency room. She had already taken her lisinopril metoprolol today. She was given labetalol for elevated blood pressure in the emergency room. She was given Solu-Medrol a neb treatment in the emergency room as well as IV Lasix. Chest x-ray was read as small pleural effusions. CTA was read as findings consistent with CHF exacerbation. Small right trace the pleural effusions
== END 2021-01-01 09:55 | disposition home or self-care (01) | DRG 293 ==
LOC: ANHED 16:51 → ANHIMU 17:26 → ANH3MED 01-01 08:01 → ANHIMU 01-03 09:51
PROVIDERS: Emergency Medicine; Nurse Practitioner; Admitting Provider Internal Medicine; Emergency Provider Emergency Medicine; PCP Internal Medicine; Visit Provider Internal Medicine
DX: I11.0 Hypertensive heart disease with heart failure (principal); I50.9 Heart failure, unspecified; D64.9 Anemia, unspecified; E03.9 Hypothyroidism, unspecified
CPT/HCPCS: 36415; 36600; 71046; 71275; 80048; 80053; 82375; 82805; 83050; 83605; 83735; 83880; 84443; 84484; 85025; 85380; 85610; 85730; 93005; 93306; 93970; 94640; 96372; 96374; 96375; 96376; 99285; A9270; G0378; J1650; J1940; J2930; Q9967

== ENCOUNTER 2021-01-25 12:15 | Outpatient (CLI) | payer MEDICARE, OTHER, SELFPAY ==
[2021-01-25 12:39] LABS: Basophils Percent Auto 0.5 % (0.2-1.2); Eosinophils Absolute Auto 0.2 K/mm3 (0-0.3); Hematocrit 29.6 % (37.0-47.0); Hemoglobin 9.7 g/dL (12.0-15.0); Immature Granulocyte Absolute 0.02 K/mm3 (0.00-0.031); Immature Granulocyte Percent A 0.3 % (0-0.5); Immature Reticulocyte Fraction 6.4 % (3.0-15.9); Lymphocytes Absolute Auto 1.75 K/mm3 (0.9-3.2); Lymphocytes Percent Auto 26.4 % (18.3-44.2); Mean Corpuscular HGB Conc 32.8 g/dl (32-36); Mean Corpuscular Hemoglobin 30.8 pg (26-34); Monocytes Absolute Auto 0.4 K/mm3 (0.1-0.6); Monocytes Percent Auto 5.7 % (2.6-8.5); Neutrophils Absolute Auto 4.3 K/mm3 (1.3-6.7); Neutrophils Percent Auto 64.1 % (45.5-73.1); Platelet Count Result 205 k/mm3 (150-375); Red Blood Count 3.15 M/mm3 (4.2-5.4); Red Cell Distribution Width 13.2 % (11.5-14.5); Reticulocyte Hemoglobin Conten 34.6 pg (28.2-35.7); Reticulocyte Percent 1.58 % (0.7-4.3); Reticulocytes Absolute 0.05 B/L (32.2-175.7); White Blood Count 6.6 K/mm3 (4.5-10.0)
[2021-01-25 16:43] LABS: Alanine Aminotransferase 16 U/L (4-35); Albumin Level 3.8 g/dL (3.5-5.1); Alkaline Phosphatase 56 U/L (38-126); Anion Gap 8 mmol/L (8-16); Aspartate Amino Transferase 26 U/L (14-36); Bilirubin,Total 0.4 mg/dL (0.2-1.3); Blood Urea Nitrogen 31 mg/dL (7-17); Calcium 10.5 mg/dL (8.4-10.2); Carbon Dioxide 27 mmol/L (22-30); Chloride 100 mmol/L (98-107); Estimated Glomerular Filt Rate 48; Glucose 91 mg/dL (65-110); Lactate Dehydrogenase 455 U/L (313-618); Potassium 4.9 mmol/L (3.4-5.0); Sodium 135 mmol/L (137-145)
[2021-01-25 19:48] LABS: Folic Acid > 20.0 ng/mL (2.76->20)
[2021-01-25 19:55] LABS: Iron 78 ug/dL (37-170)
[2021-01-25 20:04] LABS: Percent Iron Saturation 25 % (20-50)
[2021-01-29 07:32] LABS: Methylmalonic Acid 202 nmol/L (87-318)
== END 2021-01-25 12:16 | disposition home or self-care (01) ==
LOC: ANHLAB 12:24
PROVIDERS: PCP Internal Medicine; Visit Provider Internal Medicine Hematology & Oncology
DX: D64.9 Anemia, unspecified (principal)
CPT/HCPCS: 36415; 80053; 82607; 82728; 82746; 83540; 83550; 83615; 83921; 84443; 85025; 85046

== ENCOUNTER 2021-01-27 07:02 | Outpatient (CLI) | payer MEDICARE, OTHER, SELFPAY ==
[2021-01-28 17:22] LABS: IFOB Positive Control Positive; Immunochemical Fecal Occult Bl Negative (N)
== END 2021-01-27 07:03 | disposition home or self-care (01) ==
LOC: ANHLAB 01-29 07:02
PROVIDERS: PCP Internal Medicine; Visit Provider Internal Medicine Hematology & Oncology
DX: D64.9 Anemia, unspecified (principal)
CPT/HCPCS: 82274

== ENCOUNTER → 2021-05-01 08:13 | Outpatient (CLI) | payer MEDICARE, OTHER, SELFPAY ==
--- NOTE | ~2021-05-01 | XR_ITS ---
EXAMINATION: XR chest 2V EXAM DATE: 05/01/2021 08:39 INDICATION: R06.01 - Orthopnea. TECHNIQUE: Frontal and lateral projections of the chest obtained and reviewed. Comparison is made to prior examination from 12/29/2020. FINDINGS: Small bilateral pleural effusions. Cardiomegaly and pulmonary vascular congestion. Subsegm ental scattered bibasilar atelectasis, edema and/or pneumonia. No pneumothorax. Left axillary surgica l clips. There is aortic arteriosclerosis. Some chronic hyperinflation. There are no osseous abnormal ities identified. IMPRESSION: 1. Cardiomegaly, congestion, small pleural effusions. CHF? 2. Subsegmental bibasilar atelectasis, edema and/or pneumonia. Clinical correlation. Reviewed, dictated and finalized at location A. IMPRESSION: 1. Cardiomegaly, congestion, small pleural effusions. CHF? 2. Subsegmental bibasilar atelectasis, edema and/or pneumonia. Clinical correl ation.
== END ==
PROVIDERS: PCP Internal Medicine; Visit Provider Nurse Practitioner
DX: R06.01 Orthopnea (principal); I51.7 Cardiomegaly; J90 Pleural effusion, not elsewhere classified; J98.11 Atelectasis
CPT/HCPCS: 71046

== ENCOUNTER 2021-05-08 09:58 | Outpatient (CLI) | payer MEDICARE, OTHER, SELFPAY ==
--- NOTE | ~2021-05-08 | NM_ITS ---
EXAMINATION: NM quyen stress w perfusion DATE: 05/08/2021 13:58 INDICATION: Dyspnea on exertion. TECHNIQUE: Rest images were obtained following intravenous administration of 8.2 mCi Tc99m tetrofosmi n (Myoview). The patient was infused intravenously with Lexiscan (regadenoson). Then, 27.2 mCi Tc99m tetrofosmin (Myoview) was administered intravenously, and stress images were obtained. Data was recon structed into short axis and horizontal and vertical long axis SPECT images. Gated SPECT images were also obtained. COMPARISON: Chest CT 12/29/2020 FINDINGS: There is a large, severe, fixed perfusion defect involving anterior and anterolateral wall and mid anteroseptal segment of left ventricle, consistent with infarct. No reversible component to s uggest ischemia. There is global hypokinesis. Left ventricular ejection fraction measures 35%. IMPRESSION: 1. Large area of severe infarct involving anterior and anterolateral wall and mid anteroseptal segmen t of left ventricle. Specificity is decreased by breast attenuation artifact. 2. Global hypokinesis with left ventricular ejection fraction measuring 35%. Reviewed, dictated and finalized at location A. [facility]ER IMPRESSION: 1. Large area of severe infarct involving anterior and anterolateral wall and m id anteroseptal segment of left ventricle. Specificity is decreased by breast a ttenuation artifact. 2. Global hypokinesis with left ventricular ejection fraction measuring 35%.
--- NOTE | 2021-05-08 10:19 | EST_ITS ---
Patient Info Name: Terri Oconnell Age: 75 years : 1945 Gender: Female Ht: 63 in Wt: 163 lbs BSA: 1.84 m2 HR: 83 bpm BP: 161 / 87 mmHg Heart Rhythm: Sinus Rhythm Exam Date: 05/08/2021 11:34 AM Exam Location: [facility] Stress Patient Status: Outpatient Admit Date: 05/08/2021 Staff Ordering Physician: Juliana Richter Attending Provider: Juliana Richter Exercise Technologist: Kellie Dwyer CT Exercise Physician: Sienna Downing MD Exam Type: CA stress quyen w NM Study Info Indications R06.02 - Shortness of breath A regadenoson stress test was performed. Summary 1. No abnormal ST-T wave changes with lexiscan. 2. Nuclear test results to follow. 3. High blood pressure, 161/87 mmHg at rest. Max Pred HR: 145 bpm Target HR: 123 bpm BP Response: Normal blood pressure response Termination Reason: Completed protocol Cardiac Symptoms: None Report Signatures
== END 2021-05-08 09:59 | disposition home or self-care (01) ==
PROVIDERS: PCP Internal Medicine; Visit Provider Nurse Practitioner
DX: R06.02 Shortness of breath (principal); R06.01 Orthopnea; I21.09 ST elevation (STEMI) myocardial infarction involving other coronary artery of anterior wall; I51.89 Other ill-defined heart diseases
CPT/HCPCS: 78452; 93017; A9502; J2785

== ENCOUNTER 2021-05-14 08:36 | Outpatient (CLI) | payer MEDICARE, OTHER, SELFPAY ==
[2021-05-14 08:50] LABS: Basophils Percent Auto 0.5 % (0.2-1.2); Eosinophils Absolute Auto 0.2 K/mm3 (0-0.3); Eosinophils Percent Auto 2.6 % (0-4.4); Hematocrit 33.4 % (37.0-47.0); Hemoglobin 9.9 g/dL (12.0-15.0); Lymphocytes Absolute Auto 1.67 K/mm3 (0.9-3.2); Lymphocytes Percent Auto 26.7 % (18.3-44.2); Mean Corpuscular HGB Conc 29.6 g/dl (32-36); Mean Corpuscular Hemoglobin 29.6 pg (26-34); Mean Corpuscular Volume 99.7 fl (80-100); Mean Platelet Volume 12.9 fl (7.4-10.4); Monocytes Absolute Auto 0.3 K/mm3 (0.1-0.6); Monocytes Percent Auto 4.6 % (2.6-8.5); Neutrophils Absolute Auto 4.1 K/mm3 (1.3-6.7); Neutrophils Percent Auto 65.6 % (45.5-73.1); Platelet Count Result 185 k/mm3 (150-375); Red Blood Count 3.35 M/mm3 (4.2-5.4); Red Cell Distribution Width 13.4 % (11.5-14.5); White Blood Count 6.3 K/mm3 (4.5-10.0)
[2021-05-14 08:56] LABS: Ovalocytes 1+ (NORMAL); Platelet Estimate Adequate (Adequate); Poikilocytosis 1+ (NORMAL)
[2021-05-14 08:57] LABS: Blood Urea Nitrogen 26 mg/dL (8-26); Carbon Dioxide 26 mmol/L (22-30); Chloride 102 mmol/L (98-109); Estimated Glomerular Filt Rate 48; Glucose 90 mg/dL (70-105); Potassium 3.9 mmol/L (3.5-4.9); Sodium 138 mmol/L (138-146)
== END 2021-05-14 08:37 | disposition home or self-care (01) ==
LOC: ANHLAB 08:38
PROVIDERS: PCP Internal Medicine; Visit Provider Internal Medicine Hematology & Oncology
DX: D64.9 Anemia, unspecified (principal)
CPT/HCPCS: 36415; 80048; 85025

== ENCOUNTER → 2021-05-15 01:03 | Day surgery (SDC) | payer MEDICARE, OTHER, SELFPAY ==
[2021-05-14 14:43] VITALS: BMI 27.3
[2021-05-15] VITALS (9 sets, daily range): BP systolic 146–170; BP diastolic 69–86; PULSE 74–79; RESP 14–16; TEMP 35.9; O2SAT 92–98; BMI 26.8
[2021-05-15 07:35] LABS: Basophils Percent Auto 0.7 % (0.2-1.2); Eosinophils Absolute Auto 0.2 K/mm3 (0-0.3); Eosinophils Percent Auto 3.1 % (0-4.4); Hematocrit 28.2 % (37.0-47.0); Hemoglobin 9.3 g/dL (12.0-15.0); Immature Granulocyte Absolute 0.01 K/mm3 (0.00-0.031); Immature Granulocyte Percent A 0.2 % (0-0.5); Lymphocytes Absolute Auto 1.78 K/mm3 (0.9-3.2); Lymphocytes Percent Auto 32.2 % (18.3-44.2); Mean Corpuscular Hemoglobin 30.6 pg (26-34); Mean Corpuscular Volume 92.8 fl (80-100); Mean Platelet Volume 12.9 fl (7.4-10.4); Monocytes Absolute Auto 0.3 K/mm3 (0.1-0.6); Monocytes Percent Auto 4.9 % (2.6-8.5); Neutrophils Absolute Auto 3.3 K/mm3 (1.3-6.7); Neutrophils Percent Auto 58.9 % (45.5-73.1); Platelet Count Result 234 k/mm3 (150-375); Red Blood Count 3.04 M/mm3 (4.2-5.4); Red Cell Distribution Width 13.5 % (11.5-14.5); White Blood Count 5.5 K/mm3 (4.5-10.0)
--- NOTE | 2021-05-15 07:52 | WPDMODSED ---
Moderate Sedation Note-Pt Data Patient Data Diagnosis: left ventricular systolic dysfunction abnormal stress test Present Complaint: dyspnea Procedure to be performed/Plan: left heart catheterization Allergies Allergy/AdvReac Type Severity Reaction Status Date / Time No Known Allergies Allergy Verified 05/01/21 07:33 Home Medications Medication Instructions Recorded Confirmed Type ascorbic acid (vitamin C) 500 mg 500 mg PO DAILY 07/20/20 05/14/21 History tablet aspirin 81 mg tablet,delayed 81 mg PO DAILY 07/20/20 05/14/21 History release calcium carbonate 600 mg calcium 600 mg PO DAILY 07/20/20 05/14/21 History (1,500 mg) tablet cholecalciferol (vitamin D3) 125 125 mcg PO DAILY 07/20/20 05/14/21 History mcg (5,000 unit) capsule garlic 1,000 mg capsule 1,000 mg PO DAILY 07/20/20 05/14/21 History magnesium gluconate 27 mg 27 mg PO DAILY tablet 07/20/20 05/14/21 History magnesium (500 mg) tablet multivitamin 1 tablet PO DAILY 07/20/20 05/14/21 History omega-3 fatty acids 1,000 mg 1,000 mg PO DAILY 07/20/20 05/14/21 History capsule metoprolol succinate 50 mg See Rx Instructions .ROUTE 02/28/21 05/14/21 Rx tablet,extended release 24 hr .COMPLEX #90 tablet levothyroxine 25 mcg tablet 25 mcg PO DAILY #60 tablet 04/05/21 05/14/21 Rx furosemide 40 mg tablet 40 mg PO BID #60 tablet 05/01/21 05/14/21 Rx lisinopril 20 mg tablet 20 mg PO BID #180 tablet 05/08/21 05/14/21 Rx Current Medications: Active Medications Sodium Chloride (Normal Saline Iv) 500 mls @ 100 mls/hr IV CONT .Q5H RUPERT Sedation/Anesthesia: No previous sedation/anesthesia problems (including family history). [facility] Past Medical History Medical History Breast cancer chemo and radiation Fracture of wrist Hx of skin malignancy Hypertension Hypothyroidism Jugular venous distension (JVD) Skin cancer Vitamin D deficiency, unspecified Surgical History Surgical History History of carpal tunnel surgery 2001 & 2002 History of lumpectomy of left breast 1994 History of surgery on wrist due to a fracture Hx of cataract extraction 2009; bilateral Family History Family History Mother , Heart, Colon CHF (congestive heart failure) Colon cancer Father , Heart, Prostate FH: CABG (coronary artery bypass surgery) Social History Social History Social History: patient is a lifelong nonsmoker. the patient lives with her and they have been for 51 years now. They have no children. 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 She is a lifelong nonsmoker. She does not use any alcohol marijuana or illicit drugs. Smoking status: Never smoker Second hand tobacco smoke exposure: No Alcohol intake: current Alcohol use details: rarely glass of wine once a month Substance use: never Substance use type: does not use Living arrangements: with family Gender identity (if verbalized by the patient): Female Spiritual care concerns: No Mod Sed Physical Exam Physical Exam Pre Procedural Exam: Normal: Appearance, Neck, Throat, Airway, Lungs, Heart Size, Heart Rate, Heart Rhythm and Extremities Hours since solid foods: 12 Hours since liquid intake: 12 Mallampati Classification: class II Internal Medicine - PN: Obj Da Vital Signs Vital Signs: Vital Signs - 24 hr 05/15/21 07:38 Temperature 35.9 C L Pulse Rate 79 Respiratory Rate 14 Blood Pressure 170/84 H Pulse Oximetry 98 Meds/Results Medications: Active Medications Generic Name Dose Route Start Last Admin Trade Name Darielq PRN Reason Stop Dose Admin Sodium Chloride 500 mls @ 100 mls/hr 05/15/21 07:00 Normal Saline Iv IV CONT .Q5H RUPERT Labs CBC & Chem 7:
[2021-05-15 08:05] LABS: INR 0.8; Prothrombin Time 11.5 Seconds (11.1-14.7)
--- NOTE | 2021-05-15 08:33 | WPDCARDPROC ---
Cardiac Cath Procedure Note Date of procedure:: 05/15/21 Performing physician:: Carlo Horne MD Indication:: shortness of breath left ventricular systolic dysfunction abnormal nuclear stress test Brief clinical history:: this is a 75-year-old woman without previous knowledge of coronary disease. She had evaluation with an echocardiogram this past summer which appeared to be consistent with preserved left ventricular systolic function. She developed subsequently some shortness of breath and a nuclear stress test was done which demonstrated significantly reduced LV systolic function and nuclear findings that were interpreted as a previous anterior infarction. In this setting an angiogram has been recommended. Procedure Procedure performed:: Coronary angiography left ventriculography Angio-Seal to right femoral artery Sedation/Medication given:: fentanyl 50 mg Versed 2 mg case start time 8:13 a.m. case end time 8:31 a.m. the provided by Beverley Fajardo RN trained observer Access site:: right femoral artery Estimated blood loss:: 10-15 cc Procedure note:: patient was brought to the cardiac catheterization lab in the postabsorptive state where the right femoral triangle was prepared and draped in the usual fashion. Anesthesia was provided with 1% lidocaine infiltrated locally. Using the modified Seldinger technique a 5 Ch[place] sheath was placed into the femoral artery. After this left heart catheterization was carried out. I used a 5 [place] FL4 catheter to engage and inject the left coronary artery. And then I used a 5 [place] JR4 catheter to engage inject the right coronary artery. After this a 5 [place] angled pigtail catheter was used to measure left-sided hemodynamics and to injected LV g in the [place] projection. The procedure was then terminated I performed a femoral angiogram through the sheath and then deployed a 6 [place]adian Angio-Seal device for procedural hemostasis with good results. 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 Findings:: Hemodynamics: Central pressure is 164 over 76 left ventricle 1640 end-diastolic pressure of 15 there is no significant gradient on pullback across the aortic valve. Left ventricle: The LV is mildly enlarged. Global contractility is mildly depressed with an ejection fraction of about 40-45%. There are no regional wall motion abnormalities. The mitral valve annulus is heavily calcified. The left main coronary artery is nicely patent the left anterior descending is a moderate caliber vessel extending down to around the apex. The LAD and its branches are angiographically free of disease. Circumflex is a medium caliber vessel giving rise to the marginal branches. The circumflex system also appears to be smooth angiographically unremarkable. The right coronary artery is large in caliber and dominant to the posterior circulation the right coronary artery also is smooth and free of disease. Conclusion:: 1. Right coronary dominant circulation with no significant coronary artery disease. 2. Mild LV enlargement with slightly reduced systolic function and mildly elevated LVEDP 3. Angio-Seal to right femoral artery
[2021-05-15 21:24] LABS: Anion Gap 7 mmol/L (8-16); Blood Urea Nitrogen 35 mg/dL (7-17); Calcium 9.3 mg/dL (8.4-10.2); Carbon Dioxide 25 mmol/L (22-30); Chloride 101 mmol/L (98-107); Estimated CRCL calculation 37 ml/min; Estimated Glomerular Filt Rate 48; Glucose 88 mg/dL (65-110); Potassium 3.9 mmol/L (3.4-5.0); Sodium 133 mmol/L (137-145)
== END | disposition home or self-care (01) ==
PROVIDERS: PCP Internal Medicine; Visit Provider Specialist
PROC: 4A023N7 Measurement of Cardiac Sampling and Pressure, Left Heart, Percutaneous Approach (ICD-10-PCS; CPT 93452; principal; 2021-05-15 08:30)
DX: R94.39 Abnormal result of other cardiovascular function study (principal); R06.02 Shortness of breath; I34.8 Other nonrheumatic mitral valve disorders; I10 Essential (primary) hypertension; E03.9 Hypothyroidism, unspecified; E55.9 Vitamin D deficiency, unspecified; Z85.3 Personal history of malignant neoplasm of breast; Z79.82 Long term (current) use of aspirin; Z92.21 Personal history of antineoplastic chemotherapy; Z92.3 Personal history of irradiation
CPT/HCPCS: 36415; 80048; 85025; 85610; 93458; C1760; C1887; C1894; G0269; J1644; J2250; J3010; J7040

== ENCOUNTER 2021-06-11 09:22 | Outpatient (CLI) | payer MEDICARE, OTHER, SELFPAY ==
[2021-06-11 09:34] LABS: Hematocrit 29.5 % (37.0-47.0); Hemoglobin 9.2 g/dL (12.0-15.0); Mean Corpuscular HGB Conc 31.2 g/dl (32-36); Mean Corpuscular Volume 96.1 fl (80-100); Mean Platelet Volume 12.1 fl (7.4-10.4); Platelet Count Result 204 k/mm3 (150-375); Red Blood Count 3.07 M/mm3 (4.2-5.4); Red Cell Distribution Width 13.2 % (11.5-14.5); White Blood Count 6.6 K/mm3 (4.5-10.0)
== END 2021-06-11 09:23 | disposition home or self-care (01) ==
LOC: ANHLAB 09:24
PROVIDERS: PCP Internal Medicine Hematology & Oncology; Visit Provider Internal Medicine Hematology & Oncology
DX: I10 Essential (primary) hypertension (principal)
CPT/HCPCS: 36415; 85027

== ENCOUNTER 2021-09-10 09:09 | Outpatient (CLI) | payer MEDICARE, OTHER, SELFPAY ==
[2021-09-10 09:25] LABS: Basophils Percent Auto 0.5 % (0.2-1.2); Eosinophils Absolute Auto 0.2 K/mm3 (0-0.3); Eosinophils Percent Auto 3.1 % (0-4.4); Hematocrit 28.4 % (37.0-47.0); Hemoglobin 8.9 g/dL (12.0-15.0); Immature Granulocyte Absolute 0.01 K/mm3 (0.00-0.031); Immature Granulocyte Percent A 0.2 % (0-0.5); Lymphocytes Absolute Auto 1.67 K/mm3 (0.9-3.2); Lymphocytes Percent Auto 28.7 % (18.3-44.2); Mean Corpuscular HGB Conc 31.3 g/dl (32-36); Mean Corpuscular Hemoglobin 30.4 pg (26-34); Mean Corpuscular Volume 96.9 fl (80-100); Monocytes Absolute Auto 0.3 K/mm3 (0.1-0.6); Monocytes Percent Auto 5.3 % (2.6-8.5); Neutrophils Absolute Auto 3.6 K/mm3 (1.3-6.7); Neutrophils Percent Auto 62.2 % (45.5-73.1); Platelet Count Result 215 k/mm3 (150-375); Red Blood Count 2.93 M/mm3 (4.2-5.4); White Blood Count 5.8 K/mm3 (4.5-10.0)
[2021-09-10 09:31] LABS: Blood Urea Nitrogen 37 mg/dL (8-26); Carbon Dioxide 27 mmol/L (22-30); Chloride 101 mmol/L (98-109); Estimated Glomerular Filt Rate 37; Glucose 90 mg/dL (70-105); Potassium 4.2 mmol/L (3.5-4.9); Sodium 139 mmol/L (138-146)
[2021-09-10 11:58] LABS: Alanine Aminotransferase 14 U/L (4-35); Albumin Level 3.4 g/dL (3.5-5.1); Alkaline Phosphatase 52 U/L (38-126); Anion Gap 0 mmol/L (8-16); Aspartate Amino Transferase 27 U/L (14-36); Bilirubin,Total 0.3 mg/dL (0.2-1.3); Blood Urea Nitrogen 41 mg/dL (7-17); Calcium 9.6 mg/dL (8.4-10.2); Carbon Dioxide 30 mmol/L (22-30); Chloride 104 mmol/L (98-107); Estimated Glomerular Filt Rate 40; Glucose 89 mg/dL (65-110); Potassium 4.2 mmol/L (3.4-5.0); Sodium 134 mmol/L (137-145)
== END 2021-09-10 09:10 | disposition home or self-care (01) ==
LOC: ANHLAB 09:11
PROVIDERS: PCP Internal Medicine Hematology & Oncology; Visit Provider Internal Medicine Hematology & Oncology
DX: D64.9 Anemia, unspecified (principal)
CPT/HCPCS: 36415; 80053; 85025

== ENCOUNTER 2021-09-17 10:04 | Outpatient (CLI) | payer MEDICARE, OTHER, SELFPAY ==
--- NOTE | ~2021-09-17 | US_ITS ---
EXAMINATION: US venous doppler UE LT DATE: 09/17/2021 10:31 INDICATION: Left upper extremity swelling TECHNIQUE: Silverio scale images with and without compression and Doppler images of the left upper extrem ity veins were obtained. COMPARISON: 02/16/2018 FINDINGS: The left internal jugular vein, subclavian vein, axillary vein, brachial veins, basilic vein, cephali c vein, radial vein, and ulnar vein are patent. IMPRESSION: 1. Patent left upper extremity veins. No evidence of deep venous thrombosis. Reviewed, dictated and finalized at location A.
== END 2021-09-17 10:05 | disposition home or self-care (01) ==
LOC: ANHIMG 10:08
PROVIDERS: PCP Internal Medicine; Visit Provider Internal Medicine Hematology & Oncology
DX: R22.32 Localized swelling, mass and lump, left upper limb (principal); M79.89 Other specified soft tissue disorders
CPT/HCPCS: 93971

== ENCOUNTER → 2021-11-07 07:05 | Outpatient (CLI) | payer MEDICARE, OTHER, SELFPAY ==
--- NOTE | ~2021-11-07 | MM_ITS ---
EXAMINATION: MM screening rose BI w mich HISTORY: Screening TECHNIQUE: Craniocaudal and mediolateral oblique 3-D tomosynthesis images were obtained and synthetic 2-D images were generated. CAD analysis was submitted and interpreted. COMPARISON: Comparison to multiple prior studies sequentially, with oldest reviewed study dated 05/29. BREAST PARENCHYMAL COMPOSITION: The breasts are heterogeneously dense, which may obscure small masses . FINDINGS: Stable architectural distortion in the left breast, consistent with previous lumpectomy javy nges. There are developing nodular asymmetries in the anterior aspect of the right breast superiorly and inferiorly. IMPRESSION: 1. Developing nodular asymmetries of the right breast. 2. Additional mammographic views and possible breast ultrasound are recommended. BI-RADS Category 0: Incomplete: Needs additional imaging evaluation. Reviewed, dictated and finalized at location A. IMPRESSION: 1. Developing nodular asymmetries of the right breast. 2. Additional mammographic views and possible breast ultrasound are recommended . BI-RADS Category 0: Incomplete: Needs additional imaging evaluation.
== END ==
PROVIDERS: PCP Internal Medicine Hematology & Oncology; Visit Provider Internal Medicine
DX: Z12.31 Encounter for screening mammogram for malignant neoplasm of breast (principal); R92.8 Other abnormal and inconclusive findings on diagnostic imaging of breast
CPT/HCPCS: 77063; 77067

== ENCOUNTER 2021-11-14 11:40 | Outpatient (CLI) | payer MEDICARE, OTHER, SELFPAY ==
--- NOTE | ~2021-11-14 | MM_ITS ---
EXAMINATION: MM diagnostic rose RT w mich HISTORY: Right breast asymmetry on screening mammogram TECHNIQUE: Additional 3-D tomosynthesis images of the right breast were performed and synthetic 2-D i mages were generated. CAD analysis was submitted and interpreted. COMPARISON: 11/07/2021, 11/05/2020, 06/28/2019 FINDINGS: There is a return to baseline fibroglandular appearance with spot compression of the right breast in the area questioned on screening mammogram. IMPRESSION: 1. No mammographic evidence of malignancy. 2. Recommend routine screening mammography in one year. BI-RADS Category 1: Negative Reviewed, dictated and finalized at location A.
== END 2021-11-14 11:41 | disposition home or self-care (01) ==
PROVIDERS: PCP Internal Medicine Hematology & Oncology; Visit Provider Internal Medicine
DX: R92.8 Other abnormal and inconclusive findings on diagnostic imaging of breast (principal)
CPT/HCPCS: 77061; 77065; G0279

== ENCOUNTER 2023-02-16 08:36 | Outpatient (CLI) | payer MEDICARE, OTHER, SELFPAY ==
--- NOTE | ~2023-02-16 | US_ITS ---
EXAMINATION: US renal BI DATE: 02/16/2023 09:06 INDICATION: Acute kidney disease TECHNIQUE: Multiple grayscale and Doppler ultrasound images of the kidneys were obtained. COMPARISON: None. FINDINGS: The right kidney measures 12.5 x 5 x 4.8 cm. The left kidney measures 12.3 x 5.3 x 4.5 cm. The kidneys demonstrate mildly increased parenchymal echogenicity. There is a 9 mm cyst of the left k idney. There is no hydronephrosis. The bladder is normal. IMPRESSION: 1. Medical renal disease. Reviewed, dictated and finalized at location A. IMPRESSION: 1. Medical renal disease.
== END 2023-02-16 08:37 | disposition home or self-care (01) ==
PROVIDERS: PCP Nurse Practitioner Family; Visit Provider Internal Medicine Nephrology
DX: I12.9 Hypertensive chronic kidney disease with stage 1 through stage 4 chronic kidney disease, or unspecified chronic kidney disease (principal); N18.32 Chronic kidney disease, stage 3b
CPT/HCPCS: 76775

== ENCOUNTER 2023-03-31 07:32 | Outpatient (CLI) | payer MEDICARE, OTHER, SELFPAY ==
--- NOTE | ~2023-03-31 | MM_ITS ---
EXAMINATION: MM screening rose BI w mich HISTORY: Screening mammogram, history of left breast cancer TECHNIQUE: Craniocaudal and mediolateral oblique 3-D tomosynthesis images were obtained and synthetic 2-D images were generated. CAD analysis was submitted and interpreted. COMPARISON: 11/14/2021, 11/07/2021, 11/05/2020 BREAST PARENCHYMAL COMPOSITION: The breasts are heterogeneously dense, which may obscure small masses . FINDINGS: There are stable lumpectomy changes of the left breast. No suspicious mass, calcification, or architectural distortion are identified in either breast to suggest malignancy. There has been no suspicious interval change. IMPRESSION: 1. No mammographic evidence of malignancy. 2. Recommend routine screening mammography in one year. BI-RADS Category 2: Benign finding(s). Reviewed, dictated and finalized at location A.
== END 2023-03-31 07:33 | disposition home or self-care (01) ==
PROVIDERS: PCP Nurse Practitioner Family; Visit Provider Internal Medicine Hematology & Oncology
DX: Z12.31 Encounter for screening mammogram for malignant neoplasm of breast (principal)
CPT/HCPCS: 36415; 77063; 77067; 80047; 85025; 96372; Q5106

== ENCOUNTER 2023-07-22 06:57 | Outpatient (CLI) | payer MEDICARE, OTHER, SELFPAY ==
[2023-07-13 09:31] VITALS: BMI 25.4
--- NOTE | 2023-07-13 09:31 | PC.NURSE ---
Pre Radiology instructions Report to the outpatient [facility]fon[facility] don[facility] on date __07/20/23___ at time __07____ for procedure Time: __929__ YOU MAY BE MONITORED AT HOSPITAL FOR UP TO 4 HOURS AFTER YOUR PROCEDURE. A visitor will be allowed to accompany the patient into the hospital. You and your visitor will be asked to self-screen and do not enter if you have any COVID symptoms. A mask is OPTIONAL within the hospital. Patients are to have no food or drink 6 hours prior to procedure time (0330 AM) Driving will be restricted after the procedure, you must have a person to drive you home. Labs will be drawn in preop area and once reviewed, you will be taken to radiology area for procedure. When the procedure is completed, you will be taken to outpatient where you will be monitored for several hours. You may have one visitor in this area. Other than holding anti-coagulants, patient may take other medication(s) as scheduled. Prior to your appointment date patients are instructed to hold anti-coagulants after discussing with ordering provider to stop. If unable to discontinue anti-coagulants please notify radiologist. ? No aspirin or warfarin (Coumadin) for 7 days prior to the procedure. ? No clopidogrel (Plavix), ticagrelor (Brilinta), prasugrel (Effient) or dabigatran (Pradaxa) for 5 days prior to the procedure. ? No rivaroxaban (Xarelto), apixaban (Eliquis), dipyridamole (Aggrenox or Persantine) or cilostazol (Pletal) for 2 days prior to the procedure. Medications to discontinue per physician: ___ASPIRIN Date to take last dose: __PT STATES STOPPING ASPIRIN 07/12/23 Please leave all valuables, including medications, at home the day of procedure. The hospital will not accept responsibility for valuables. Wear comfortable, loose fitting clothing.? Follow any additional instructions given to you from ordering provider. Telephone instructions given to ___PT and asked if any additional questions and then verbalized understanding. Patient advised to call scheduling provider office or registration scheduling [phone] if any additional questions.
--- NOTE | 2023-07-20 10:02 | PC.NURSE ---
Pre Radiology instructions RESCHEDULED BECAUSE OF INCLEMENT WEATHER. [facility] the [facility] on date _07/22/23____ at time _7:30AM for procedure Time: _9:30AM___ YOU MAY BE MONITORED AT HOSPITAL FOR UP TO 4 HOURS AFTER YOUR PROCEDURE. A visitor will be allowed to accompany the patient into the hospital. You and your visitor will be asked to self-screen and do not enter if you have any COVID symptoms. A mask is OPTIONAL within the hospital. Patients are to have no food or drink 6 hours prior to procedure time Driving will be restricted after the procedure, you must have a person to drive you home. Labs will be drawn in preop area and once reviewed, you will be taken to radiology area for procedure. When the procedure is completed, you will be taken to outpatient where you will be monitored for several hours. You may have one visitor in this area. Other than holding anti-coagulants, patient may take other medication(s) as scheduled. Prior to your appointment date patients are instructed to hold anti-coagulants after discussing with ordering provider to stop. If unable to discontinue anti-coagulants please notify radiologist. ? No aspirin or warfarin (Coumadin) for 7 days prior to the procedure. ? No clopidogrel (Plavix), ticagrelor (Brilinta), prasugrel (Effient) or dabigatran (Pradaxa) for 5 days prior to the procedure. ? No rivaroxaban (Xarelto), apixaban (Eliquis), dipyridamole (Aggrenox or Persantine) or cilostazol (Pletal) for 2 days prior to the procedure. Medications to discontinue per physician: __ASPIRIN 7 DAYS PRE-PROCEDURE Date to take last dose: ____07/14/23 Please leave all valuables, including medications, at home the day of procedure. The hospital will not accept responsibility for valuables. Wear comfortable, loose fitting clothing.? Follow any additional instructions given to you from ordering provider. Telephone instructions given to ___PATIENT and asked if any additional questions and then verbalized understanding. Patient advised to call scheduling provider office or registration scheduling [phone] if any additional questions.
[2023-07-22 07:44] VITALS: BP 177/86; PULSE 58; RESP 16; O2SAT 98
[2023-07-22 07:56] LABS: Mean Platelet Volume 12.4 fl (7.4-10.4); Platelet Count Result 206 k/mm3 (150-375)
[2023-07-22 08:08] LABS: INR 0.9; Prothrombin Time 11.9 Seconds (11.1-14.7)
[2023-07-22 08:09] VITALS: BMI 25.7
[2023-07-22 09:01] VITALS: BP 186/93; PULSE 57; RESP 14
--- NOTE | 2023-07-22 10:00 | SUR.PREOP ---
Patient unable to get biopsy due to elevated blood pressure, case discussed with Dr. Marlow. Patient advised to see primary care for medication adjustment. Cornelio to discharge home per provider.
== END 2023-07-22 10:00 | disposition home or self-care (01) ==
PROVIDERS: PCP Nurse Practitioner Family; Visit Provider Radiology Diagnostic Radiology
PROC: (CPT 76942; principal; 2023-07-22 09:30)
DX: R80.9 Proteinuria, unspecified (principal); R76.8 Other specified abnormal immunological findings in serum; R77.8 Other specified abnormalities of plasma proteins
CPT/HCPCS: 36415; 85049; 85610

== ENCOUNTER 2023-08-21 06:39 | Outpatient (CLI) | payer MEDICARE, OTHER, SELFPAY ==
[2023-08-18 13:58] VITALS: BMI 25.4
--- NOTE | 2023-08-18 13:59 | PC.NURSE ---
Pre Radiology instructions Report to the outpatient alfonzo donovan on date __08/21/23___ at time __7:30AM for procedure Time: __9:30AM__ YOU MAY BE MONITORED AT HOSPITAL FOR UP TO 4 HOURS AFTER YOUR PROCEDURE. A visitor will be allowed to accompany the patient into the hospital. You and your visitor will be asked to self-screen and do not enter if you have any COVID symptoms. A mask is OPTIONAL within the hospital. Patients are to have no food or drink 6 hours prior to procedure time Driving will be restricted after the procedure, you must have a person to drive you home. Labs will be drawn in preop area and once reviewed, you will be taken to radiology area for procedure. When the procedure is completed, you will be taken to outpatient where you will be monitored for several hours. You may have one visitor in this area. Other than holding anti-coagulants, patient may take other medication(s) as scheduled. Prior to your appointment date patients are instructed to hold anti-coagulants after discussing with ordering provider to stop. If unable to discontinue anti-coagulants please notify radiologist. ? No aspirin or warfarin (Coumadin) for 7 days prior to the procedure. ? No clopidogrel (Plavix), ticagrelor (Brilinta), prasugrel (Effient) or dabigatran (Pradaxa) for 5 days prior to the procedure. ? No rivaroxaban (Xarelto), apixaban (Eliquis), dipyridamole (Aggrenox or Persantine) or cilostazol (Pletal) for 2 days prior to the procedure. Medications to discontinue per physician: __HOLD ASPIRIN 7 DAYS PRE-PROCEDURE Date to take last dose: 08/13/23 Please leave all valuables, including medications, at home the day of procedure. The hospital will not accept responsibility for valuables. Wear comfortable, loose fitting clothing.? Follow any additional instructions given to you from ordering provider. Telephone instructions given to ____PATIENT and asked if any additional questions and then verbalized understanding. Patient advised to call scheduling provider office or registration scheduling [phone] if any additional questions.
[2023-08-21] VITALS (12 sets, daily range): BP systolic 133–189; BP diastolic 63–86; PULSE 51–66; RESP 16; TEMP 36.8; O2SAT 98
--- NOTE | ~2023-08-21 | US_ITS ---
EXAMINATION: US biopsy renal DATE: 08/21/2023 09:52 INDICATION: Runny kidney disease with proteinuria TECHNIQUE: The procedure including the risks, benefits, and alternatives was discussed with the patie nt. Risks discussed included bleeding and infection. The patient understood the risks and agreed to p roceed. A timeout was performed to verify the patient's name, date of , and procedure to be p erformed. The skin overlying the left kidney was prepped and draped in usual sterile fashion. Anest hetic was administered with 1% lidocaine subcutaneously. An 18 gauge core biopsy needle was then use d to obtain 3 core biopsy specimens under continuous sonographic guidance. The entry site was cleaned and dressed. There were no immediate complications. FINDINGS: Ultrasound images demonstrate the needle in the kidney. IMPRESSION: 1. Ultrasound-guided random left kidney core needle biopsy. Reviewed, dictated and finalized at location A. T TENDER
[2023-08-21 08:33] LABS: Mean Platelet Volume 12.4 fl (7.4-10.4); Platelet Count Result 225 k/mm3 (150-375)
[2023-08-21 08:48] LABS: INR 0.9
== END 2023-08-21 13:52 | disposition home or self-care (01) ==
PROVIDERS: PCP Nurse Practitioner Family; Referring Provider Internal Medicine Nephrology; Visit Provider Radiology Diagnostic Radiology
PROC: (CPT 76942; principal; 2023-08-21 09:30)
DX: Z01.818 Encounter for other preprocedural examination (principal); R80.9 Proteinuria, unspecified; N18.32 Chronic kidney disease, stage 3b
CPT/HCPCS: 36415; 50200; 76942; 85049; 85610; 88300; 88305; 88313; 88329; 88342; 88346; 88348; 88350

== ENCOUNTER → 2023-09-25 00:35 | Day surgery (SDC) | payer MEDICARE, OTHER, SELFPAY ==
[2023-09-24 15:57] VITALS: BMI 25.4
[2023-09-25 08:07] VITALS: BP 191/80; PULSE 64; RESP 14; TEMP 36.7; O2SAT 98; BMI 25.4
[2023-09-25 09:20] VITALS: BP 177/74; PULSE 66; RESP 12; O2SAT 94
--- NOTE | 2023-09-25 09:27 | P.PCNCC_ITS ---
Cardiac Cath Procedure Note Date of procedure:: 09/25/23 Performing physician:: Carlo Horne MD Indication:: Recurrent syncope Brief clinical history:: This is a 77-year-old woman who has a nonischemic cardiomyopathy who has had 2 syncopal episodes within the last 9 months which have been unexplained. For further evaluation of this a loop recorder has been recommend and scheduled for today Procedure Procedure performed:: Implantation of Medtronic LINQ loop recorder Sedation/Medication given:: No sedated Access site:: Left anterior chest wall Estimated blood loss:: Minimal Procedure note:: Patient was brought to the cardiac catheterization lab holding area in the postabsorptive state. A len was made in the midclavicular line in the 4th intercostal space. After this the area was prepped and draped in a sterile fashion. The and received a 20 cc of 1% lidocaine infiltrated locally at the site of the marked implantation site and inferior to that the side of the expected implantation of the LINQ device. Following this a puncture was made using the supplied LINQ puncture tool and using the insertion device the LINQ loop recorder was then implanted inferior to the puncture site uneventfully. Chente local pressure was held and a drop a bio glue and then a bandage was placed over the site. The device was checked using the interrogation and excellent sensing was demonstrated. R-wave amplitude was 1.56. Findings:: As above Conclusion:: Successful uncomplicated implantation of Medtronic LINQ loop recorder for evaluation of recurrent syncope in this 77-year-old lady who has a nonischemic cardiomyopathy Carlo Horne MD [facility]
== END | disposition home or self-care (01) ==
PROVIDERS: PCP Family Medicine; Visit Provider Specialist
PROC: (CPT 33285; principal; 2023-09-25 09:00)
DX: R55 Syncope and collapse (principal); I42.8 Other cardiomyopathies; Z79.82 Long term (current) use of aspirin
CPT/HCPCS: 33285; C1764

== ENCOUNTER 2024-04-04 07:55 | Outpatient (CLI) | payer MEDICARE, OTHER, SELFPAY ==
--- NOTE | ~2024-04-04 | MM_ITS ---
EXAMINATION: MM screening rose BI w mich HISTORY: Screening TECHNIQUE: Craniocaudal and mediolateral oblique 3-D tomosynthesis images were obtained and synthetic 2-D images were generated. CAD analysis was submitted and interpreted. COMPARISON: Comparison to multiple prior studies sequentially, with oldest reviewed study dated 05/30. BREAST PARENCHYMAL COMPOSITION: Dense: The breasts are heterogeneously dense, which may obscure small masses FINDINGS: Stable architectural distortion of the left breast, consistent with previous lumpectomy. Th ere is no evidence of suspicious mass, calcification, or architectural distortion to suggest malignan cy in either breast. There has been no suspicious interval change. IMPRESSION: 1. No mammographic evidence of malignancy. 2. Recommend routine screening mammography in one year. BI-RADS Category 2: Benign finding(s). Reviewed, dictated and finalized at location B.
== END 2024-04-04 07:56 | disposition home or self-care (01) ==
LOC: ANHIMG 07:57
PROVIDERS: PCP Nurse Practitioner Family; Visit Provider Nurse Practitioner Family
DX: Z12.31 Encounter for screening mammogram for malignant neoplasm of breast (principal)
CPT/HCPCS: 77063; 77067

== ENCOUNTER 2025-03-22 09:35 | Outpatient (CLI) | payer MEDICARE, OTHER, SELFPAY ==
--- NOTE | ~2025-03-22 | DEXA_ITS ---
Bone Density Report Name: BHAVANI LIU Age: 79 Sex: Female Ethnicity: White Date of : 1945 Indication: osteopenia; prior fracture; cancer; Referring Provider: VERONICA BERNARD Study: Bone densitometry was performed. Exam Date: March 22, 2025 Accession number: [id number] Bone Density: Region BMD T-score Z-score Classification AP Spine(L1, L3, L4) 0.910 -1.3 1.4 Osteopenia Femoral Neck (Left) 0.657 -1.7 0.5 Osteopenia Total Hip (Left) 0.817 -1.0 1.0 Normal Femoral Neck (Right) 0.638 -1.9 0.4 Osteopenia Total Hip (Right) 0.780 -1.3 0.7 Osteopenia Total Hip Mean 0.799 -1.2 0.9 Osteopenia World Health Organization criteria for BMD impression classify patients as: Normal (T-score at or above -1.0), Osteopenia (T-score between -1.0 and -2.5), or Osteoporosis (T-score at or below -2.5). 10-year Fracture Risk(1): Major Osteoporotic Fracture 21% Hip Fracture 5.1% Reported Risk Factors: [place] (), Neck BMD=0.638, BMI=27.4, previous fracture (1) FRAX(R) Version 3.08. Fracture probability calculated for an untreated patient. Fracture probability may be lower if the patient has received treatment. Previous Exams: -- Region Exam Age BMD T-score BMD Change BMD Change Date g/cm2 vs Baseline vs Previous -- AP Spine (L1,L3-L4) 03/22/2025 79 0.910 -1.3 16.3%# 4.8%# 06/15/2013 67 0.868 -1.7 11.0%* 4.6%* 06/09/2011 65 0.830 -2.0 6.1%* 4.0%* 06/06/2009 63 0.798 -2.3 2.1% -6.6%* 06/17/2007 61 0.855 -1.8 9.3%* 5.2%* 06/13/2005 59 0.812 -2.2 3.9%* 3.9%* 06/12/2004 58 0.782 -2.5 Total Hip(Left) 03/22/2025 79 0.817 -1.0 -4.7%# -8.2%# 06/15/2013 67 0.889 -0.4 3.8%* -1.1% 06/09/2011 65 0.900 -0.3 4.9%* 0.5% 06/06/2009 63 0.895 -0.4 4.5%* -8.3%* 06/17/2007 61 0.977 0.3 13.9%* 13.9%* 06/12/2004 58 0.857 -0.7 Total Hip(Right) 03/22/2025 79 0.780 -1.3 -11.1%# -16.7%# 06/15/2013 67 0.937 0.0 6.7%* 3.1%* 06/09/2011 65 0.908 -0.3 3.5%* 1.5% 06/06/2009 63 0.895 -0.4 2.0% -10.8%* 06/17/2007 61 1.003 0.5 14.3%* 14.3%* 06/12/2004 58 0.878 -0.5 -- *Denotes significance at 95% confidence level, LSC for AP Spine = 0.022 g/cm2, LSC for Total Hip = 0.027 g/cm2 Rate of change results reflect vertebral levels common to all scans # Denotes dissimilar scan types or analysis methods Clinical Information Provided by Patient: Has had a low trauma fracture Has used the following medications: Vitamin D, Calcium Has the following medical conditions: Cancer Patient maximum height was 63 Menopause Age: 50 No regular weight bearing exercise Drinks caffeinated beverages Onset of menses at age 12 Number of children 0 Impression: The patient has low bone mass, based on the Right Femoral Neck T-score. The patient has an estimated ten-year risk of hip fracture of 5.1% and an estimated ten-year risk of major fracture of 21%, based on the WHO FRAX algorithm. The patient has risk factors, including: previous fracture. Unable to evaluate interval change due to the use of different scan modes. Discussion: BONE DENSITY IS LOW AT ONE OR MORE SKELETAL SITES. THE PATIENT'S BMD AND CLINICAL RISK FACTORS CONTRIBUTE TO THIS PATIENT'S HIGH RISK OF FRACTURE. This patient's lowest T-score is low at one or more skeletal sites. It meets the World Health Organization's (WHO) criteria for ?low bone mass? (T-score between -1.0 and -2.5). The patient's 10-year risk of hip fracture and 10 year risk of a major osteoporotic fracture as calculated by FRAX exceeds the threshold where pharmacological therapy is recommended by the National Osteoporosis Foundation (NOF). However, all treatment decisions require clinical judgment and consideration of individual patient factors, including patient preferences, comorbidities, previous drug use, risk factors not captured in the FRAX model (e.g., frailty, falls, vitamin D deficiency, increased bone turnover, interval significant decline in bone density) and possible under or overestimation of fracture risk by FRAX. The patient should follow a healthful lifestyle (good nutrition with adequate calcium and vitamin D, and appropriate weight-bearing exercise). Follow-Up: Consider a repeat BMD and Vertebral Fracture Assessment (VFA) exam in 2 years or sooner if medically necessary, to reassess this patient's status. Reported by: MAINOR on 03/22/2025 10:06:00 AM. Reviewed, dictated and finalized at location A.
== END 2025-03-22 09:36 | disposition home or self-care (01) ==
LOC: MICIMG 09:36
PROVIDERS: PCP Nurse Practitioner Family; Visit Provider Nurse Practitioner Family
DX: M85.89 Other specified disorders of bone density and structure, multiple sites (principal); Z78.0 Asymptomatic menopausal state; Z13.820 Encounter for screening for osteoporosis
CPT/HCPCS: 77080

== ENCOUNTER 2025-04-26 08:05 | Outpatient (CLI) | payer MEDICARE, OTHER, SELFPAY ==
--- NOTE | ~2025-04-26 | MM_ITS ---
EXAMINATION: MM screening rose BI w mich HISTORY: Screening TECHNIQUE: Craniocaudal and mediolateral oblique 3-D tomosynthesis images were obtained and synthetic 2-D images were generated. CAD analysis was submitted and interpreted. COMPARISON: Comparison to multiple prior studies sequentially, with oldest reviewed study dated 06/28/2019. BREAST PARENCHYMAL COMPOSITION: Dense: The breasts are heterogeneously dense, which may obscure small masses FINDINGS: There are developing asymmetries of the right breast without discrete mass. There are no suspicious calcifications. Stable architectural distortion in the left breast, consistent with previous lumpectomy. There is coarse calcification of the left breast in the lower central breast, consistent with fat necrosis. There is a loop recorder overlying the medial aspect of the left breast. IMPRESSION: 1. Developing right breast asymmetries. 2. Additional mammographic views and possible breast ultrasound are recommended. BI-RADS Category 0: Incomplete: Needs additional imaging evaluation. Reviewed, dictated and finalized at location C. IMPRESSION: 1. Developing right breast asymmetries. 2. Additional mammographic views and possible breast ultrasound are recommended . BI-RADS Category 0: Incomplete: Needs additional imaging evaluation.
--- OUTSIDE RECORDS SUMMARY | 2025-04-26 08:14 | XMS_ITS | Clinical Summary ---
Author Organization [facility] Rosalind Carrizales Address [address] [place] [address] Care Team Providers Care Section Supervisor Name Role Phone Sebastian Solano MD Primary Care Provider [phone] Allergies No known active allergies Medications ascorbic acid (VITAMIN C) 500 mg Tablet, Chewable Active calcium carbonate + vitamin D (CALTRATE+D) 600 mg(1,500mg) -400 unit Tablet Take 1 Tablet by mouth daily. Active furosemide (LASIX) 40 mg tablet Take 40 mg by mouth daily. Active levothyroxine 25 mcg tablet Take 50 mcg by mouth daily. Active lisinopriL (PRINIVIL) 20 mg tablet Take 20 mg by mouth 2 times daily. Active Uafly-9-IOX-EPA- Fish Oil 1,200 (144-216) mg Capsule Take by mouth. Active multivitamin (DAILY-YOVANNY) tablet Take 1 Tablet by mouth daily. Active cholecalciferol, Vitamin D3, 125 mcg (5,000 unit) Capsule Take 5,000 Units by mouth daily. Active aspirin (ECOTRIN EC) 81 mg Tablet, Delayed Release (E.C.) Take 81 mg by mouth daily. Active magnesium gluconate (MAGONATE) 27 mg (500 mg) Tablet Take 1 Tablet by mouth daily. Active empagliflozin (JARDIANCE) 10 mg tablet Take 10 mg by mouth daily. 04/06/2024 Active potassium CHLORIDE (K-DUR,KLOR-CON M20) 20 mEq Extended Release tablet TAKE 1 TABLET BY MOUTH DAILY 90 Tablet 1 11/08/2024 Active Active Problems Problem Noted Date Diagnosed Date Anemia of chronic renal failure, stage 3 (modera te) 01/25/2021 Encounters Date Type Department Care Team Description 04/24/2025 Orders Only [facility] Oncology and Hematology - [place] [address] [place] [phone] Jarad Quintero MD Chronic anemia 04/10/2025 Orders Only [facility] Oncology and Hematology - [place] [address] [place] [phone] Jarad Quintero MD Chronic anemia 03/31/2025 Orders Only [facility] Oncology and Hematology - [place] [address] Jarad Quintero MD 03/29/2025 9:00 AM CDT Office Visit [facility] Oncology and Hematology - [place] [address] Jarad Quintero MD Chronic anemia (Primary Dx) 03/27/2025 Orders Only [facility] Oncology and Hematology - [place] [address] [place] [phone] Jarad Quintero MD Chronic anemia 03/13/2025 Orders Only [facility] Oncology and Hematology - [place] [address] [place] [phone] Jarad Quintero MD Chronic anemia 03/01/2025 Orders Only [facility] Oncology and Hematology - [place] [address] [place] [phone] Jarad Quintero MD 02/28/2025 External Device Data STL ABSTRACTION Provider, Abstract 02/27/2025 Orders Only [facility] Oncology and Hematology - [place] [address] [place] [address] Jarad Quintero MD Chronic anemia 02/15/2025 External Device Data STL ABSTRACTION Provider, Abstract 02/13/2025 Orders Only [facility] Oncology and Hematology - [place] [address] [place] [address] Jarad Quintero MD Chronic anemia 02/07/2025 External Device Data STL ABSTRACTION Provider, Abstract 02/01/2025 Orders Only [facility] Oncology and Hematology - [place] [address] [place] [address] Jarad Quintero MD 01/31/2025 Orders Only [facility] Oncology and Hematology - [place] [address] [place] [phone] Jarad Quintero MD Chronic anemia (Primary Dx) from Last 3 Months Family History Medical History Relation Name Comments Heart Disease Brother Cancer Mother Heart Disease Mother Relation Name Status Comments Brother Alive Father Mother Social History Tobacco Use Types Packs/Day Years Used Date Smoking Tobacco: Never Smokeless Tobacco: Never Alcohol Use Standard Drinks/Week Comments Yes 0 (1 standard drink = 0.6 oz pur e alcohol) Comments Unknown Sex and Gender Information Value Date Recorded Sex Assigned at Female 04/27/2024 6:27 AM CDT Legal Sex Female 10:56 AM CDT Gender Identity Female 04/27/2024 6:27 AM CDT Sexual Orientation Straight 04/27/2024 6: 27 AM CDT Last Filed Vital Signs Vital Sign Reading Time Taken Comments Blood Pressure 151/77 03/29/2025 9:08 AM CDT Pulse 58 03/29/2025 9:04 AM CDT Temperature 36.1 C (97 F) 03/29/2025 9:04 AM CDT Respiratory Rate 16 03/29/2025 9:04 AM CDT Oxygen Saturation 95% 03/29/2025 9:04 AM CDT Inhaled Oxygen Concentration - - Weight 69.4 kg (153 lb) 03/29/2025 9:04 AM CDT Height 160 cm (5' 3) 11/29/2021 9:02 AM CDT Body Mass Index 27.1 11/29/2021 9:02 AM CDT Plan of Treatment Upcoming Encounters Date Type Department Care Team (Late st Contact Info) Description 07/24/2025 9:00 AM [facility]IL[facility] Office Visit [facility] Oncology and Hematology - [place] [address] [place] [phone] Jarad Quintero MD [address] [facility] [address] [place] [address] Health Maintenance Due Date Last Done Comments DTAP/TDAP/TD VACCINES (1 - Tdap) 1964 PNEUMOCOCCAL VACCINE 50+ YEA RS (1 of 1 - PCV) 10/30/1995 03/16/2013 OSTEOPOROSIS SCREENING 2010 RSV VACCINE (60+ or ) (1 - 1-dose 75+ series) 2020 INFLUENZA VACCINE (#1) 2025 COLORECTAL SCREENING Discontinued 02/05/2018 Colorectal Cancer Screening Discontinued ZOSTER VACCINE Completed 03/29/2019, 12/27, 03/10/2017, Additional history exists FIT-DNA Q 3 years Discontinued FIT/FOBT Q 1 year Discontinued Flex Sig/CT Colonography Q 5 years Discontinued Procedures Procedure Name Priority Date/Time Associated Diagnosis Comments CBC WITH AUTODIFFERENTIAL Routine 2024 11:18 AM CDT IRON, TIBC, AND PERCENT SATURATION Routine 03/01/2025 3:14 PM CDT CBC WITH AUTODIFFERENTIAL Routine 2024 1:00 PM CDT CBC WITH AUTODIFFERENTIAL Routine 2024 12:52 PM CDT from Last 3 Months Results * CBC WITH AUTODIFFERENTIAL (03/29/2025 11:18 AM CDT) Only the most recent of3 resultswithin the time period is included. Blood us Jarad Quintero MD HEMATOLOGY ORDERABLES Final Res ult * IRON, TIBC, AND PERCENT SATURATION (03/01/2025 3:14 PM CDT) Blood us Jarad Quintero MD CHEMISTRY ORDERABLES Final Resu lt from Last 3 Months Insurance MEDICARE PART A AND B GENERIC PAYOR Care Teams Section Supervisor Relationship Specialty Start Date End Date Sebastian Solano MD [address] [place] [phone] PCP - General Family Practice 01/06/23
--- OUTSIDE RECORDS SUMMARY | 2025-04-26 08:14 | XMS_ITS | Clinical Summary ---
Author Organization [facility] Address [address] [place] [address] Care Team Providers Care Region Manager Name Role Phone Unknown, Provider Primary Care Provider Unavaila ble Source Comments [facility],non-owned Affiliates and Associated Physician Practices is amultiple site organization consisting of ambulatory clinics and hospital sitesin [place], [place], [place] and [place]. This disclosure is being madepursuant to the Care Everywhere program and may not contain all information available regarding this patient. Last updated 18.[facility] Allergies No known active allergies Medications * Be aware that medications may not be up to date on this document. Alwaysverify current medications with the patient. ascorbic acid (Vitamin C) 500 MG tablet Active aspirin EC (Ecotrin) 81 MG tablet Take 1 (one) tablet by mouth once daily Active Calcium Carb-Cholecalc iferol (Calcium/Vitam in D) 600-400 MG-UNIT TABS Take 1 tablet by mouth once daily Active candesartan (Atacand) 32 MG tablet Take 1 (one) tablet by mouth once daily Active vitamin D3 (Cholecalcifer ol) 25 MCG (1000 UNITS) tablet Take 1 (one) tablet by mouth once daily Active furosemide (Lasix) 40 MG tablet Take 1 (one) tablet by mouth once daily Active hydrALAZINE (Apresoline) 50 MG tablet Take 1 (one) tablet by mouth 3 times daily Active levothyroxine (Synthroid) 50 MCG tablet Take 1 (one) tablet by mouth daily before breakfast Active metoprolol succinate XL 24hr (Toprol XL) 100 MG tablet Take 1 (one) tablet by mouth once daily Active multivitamin daily tablet Take 1 (one) tablet by mouth daily with food Active xgsvb-6-[id number] ethyl esters (Lovaza) 1 g capsule Take 1 (one) capsule by mouth once daily Active ferrous sulfate 325 (65 FE) MG tablet Take 1 (one) tablet by mouth once daily Active epoetin (Procrit) 42633 UNIT/ML injection Inject 1 mL subcutaneously once As needed once a month based on hgb level Active empagliflozin (Jardiance) 10 MG tabletIndicati ons:Chronic Renal Disease Take 1 (one) tablet by mouth once daily Reasons: Chronic Kidney Disease 90 tablet 3 Active Active Problems Problem Noted Date Diagnosed Date Other proteinuria 04/06/2024 Nephrotic syndrome 04/06/2024 Social History Tobacco Use Types Packs/Day Years Used Date Smoking Tobacco: Never Assessed Comments Unknown Sex and Gender Information Value Date Recorded Sex Assigned at Not on file Legal Sex Female 11:38 AM PULL OVER Gender Identity Not on file Sexual Orientation Not on file Last Filed Vital Signs Vital Sign Reading Time Taken Comments Blood Pressure 133/77 07/27/2024 2:01 PM PULL OVER Pulse 55 07/27/2024 1:57 PM PULL OVER Temperature 36.8 C (98.3 F) 07/27/2024 1:57 PM PULL OVER Respiratory Rate 20 04/06/2024 1:08 PM CDT Oxygen Saturation 100% 04/06/2024 1:08 PM CDT Inhaled Oxygen Concentration - - Weight 65.7 kg (144 lb 12.8 oz) 04/06/2024 1:08 PM CDT Height 160 cm (5' 3) 07/27/2024 1:57 PM PULL OVER Body Mass Index - - Plan of Treatment Health Maintenance Due Date Last Done Comments BONE DENSITY TESTING 1945 MEDICARE AWV 12 MONTHS 1945 DTAP/TDAP/TD VACCINES (1 - Tdap) 1964 PNEUMOCOCCAL VACCINE 50+ (1 of 2 - PCV) 1964 ZOSTER VACCINE (1 of 2) 10/30/1995 Respiratory Syncytial Virus (RSV) Vaccine Pt: or over 60 yrs (1 - 1-dose 75+ series) 2020 DEPRESSION SCREENING 06/29/2024 COVID-19 VACCINE ( - 2023-2 5 season) 2025 INFLUENZA VACCINE (#1) 2025 6, 03/07/2015, 02/08/2013 HEPATITIS B VACCINE Aged Out No longe r eligible based on patient's age to complete this topic HIB VACCINE Aged Out No longer eligi ble based on patient's age to complete this topic HPV VACCINE Aged Out No longer eligi ble based on patient's age to complete this topic MENINGOCOCCAL (Group B) VACCINE SHARED DECISION-MAKING Aged Out No longer eligible based on patient's age to complete this topic MENINGOCOCCAL GROUPS A/C/Y/W VACCINE Aged Out No longer eligible b ased on patient's age to complete this topic Insurance MEDICARE MEDICARE SUPPLEMENT PAYOR GENERIC Care Teams Region Manager Relationship Specialty Start Date End Date Unknown, Provider PCP - General 07/27/24
--- OUTSIDE RECORDS SUMMARY | 2025-04-26 08:15 | XMS_ITS | Clinical Summary ---
Author Organization [facility] Address [address] [place] [address] Phone Care Team Providers Care Electronics Engineering Professor Name Role Phone Sebastian Solano MD Primary Care Provider [phone] Allergies No known active allergies Medications aspirin 81 mg enteric coated tablet 03/10/2017Aspirin, po solid 81 mg Tablet, delayed release (enteric coated)POdailyCurrent Medication 017 Active multivitamin capsule 03/10/2017Multivitamin , po solid TabletPOdailyCurrent Medication 017 Active cholecalciferol (VITAMIN D-3) 5,000 unit capsule 017 Active ascorbic acid (VITAMIN C) 500 mg tablet,chewable Acti ve omega 1-nhc-dtu-fish oil 1,200 (144-216) mg capsule Take by mouth Active calcium carbonate-vitamin D3 (CALTRATE 600 + D) 1500 mg (600 mg elemental) -400 units per tablet Take 1 tablet by mouth daily Active furosemide (LASIX) 40 mg tablet Take 1 tablet (40 mg total) by mouth 2 (two) times a day Active levothyroxine (SYNTHROID) 25 mcg tablet Take 1 tablet (25 mcg total) by mouth daily Act altagracia hydrALAZINE (APRESOLINE) 50 mg tablet Take 1 tablet (50 mg total) by mouth 3 (three) times a day 022 Active candesartan (ATACAND) 32 mg tablet TAKE 1 TABLET BY MOUTH DAILY. 90 tablet 3 025 Active Jardiance 10 mg tablet TAKE 1 (ONE) TABLET BY MOUTH ONCE DAILY REASONS: CHRONIC KIDNEY DISEASE Active epoetin shabbir (Procrit) 20,000 unit/mL injection Inject 1 mL (20,000 Units total) under the skin once Active metoprolol XL (TOPROL-XL) 100 mg 24 hr tabletIndications :Nonischemic cardiomyopathy (HCC) TAKE 1 TABLET BY MOUTH EVERY DAY 90 tablet 1 025 Active Active Problems Problem Noted Date Diagnosed Date Nonrheumatic aortic valve stenosis 03/24/2025 Visit for wound check 10/02/2023 Status post placement of implantable loop record er 09/28/2023 Overview (09/28/2023): Medtronic LNQ11 Loop Recorder. Dx; syncope, PSVT. DOI 09/25/2023-[facility]ie. [facility]. 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, estrogen receptor positive 03/16/2018 Cancer Staging:Clinical stage from 03/25/1995: cT1c, cN2a, cM0, G2, ER: Positive, NC: Positive, HER2: Unknown - Signed by Thien Samuel MD on 03/16/2018 Lymphedema 03/11/2016 Encounters Date Type Department Care Team Description 04/17/2025 9:00 AM CDT Ancillary Procedure [facility] [address] [place] [address] [place] [phone] Status post placement of implantable loop recorder; Syncope and collapse; PSVT (paroxysmal supraventricular tachycardia) 03/24/2025 9:15 AM CDT Office Visit [facility] [address] [place] [phone] Carlo Horne MD Status post placement of implantable loop recorder (Primary Dx); Nonrheumatic aortic valve stenosis 03/06/2025 7:00 AM CDT Ancillary Procedure [facility] [address] [place] [address] [place] [phone] Status post placement of implantable loop recorder; Syncope and collapse; PSVT (paroxysmal supraventricular tachycardia) from Last 3 Months Immunizations Immunization Administration Dates Next Due Influenza, Unspecified 03/11/2016,03/07/2015, Pneumococcal Conjugate, Unspecified 03/16/2013 ZOSTER LIVE 03/10/2017,03/11/2016 ZOSTER Recombinant 03/29/2019,01/14/2019 Surgical History Surgery Date Site/Laterality Comments BREAST BIOPSY BREAST RECONSTRUCTION COLONOSCOPY BREAST LUMPECTOMY 06/29/1994 - 06/28/1995 Left CARPAL TUNNEL RELEASE Bilateral WRIST FRACTURE SURGERY Left CATARACT EXTRACTION Medical History Medical History Date Comments Breast cancer (HCC) 1994 Cataract 2009 Hypertension Feb 2020 Thyroid disease 12/18/2020 Family History Medical History Relation Name Comments Leukemia Father Cancer Mother Elvira Domingo Colon cancer Mother Elvira Domingo HOLE IN HEART Mother Elvira Domingo Heart failure Mother Elvira Domingo PACEMAKER Mother Elvira Pereraon Uterine cancer Mother Elvira Domingo Relation Name Status Comments Brother Alive Father (Age 87) 85 when di agnosed Mother Elvira Domingo (Age 78) 76 when diagnosed Social History Tobacco Use Types Packs/Day Years Used Date Smoking Tobacco: Never Smokeless Tobacco: Never Tobacco Cessation:Counseling Given: Not Answered Alcohol Use Standard Drinks/Week Comments Yes 0 (1 standard drink = 0.6 oz pur e alcohol) Comments Unknown Sex and Gender Information Value Date Recorded Sex Assigned at Not on file Legal Sex Female 8:18 AM CDT Gender Identity Female 01/17/2021 7:35 AM CDT Sexual Orientation Straight 01/17/2021 7: 35 AM CDT Obstetrics History Last Filed Vital Signs Vital Sign Reading Time Taken Comments Blood Pressure 126/74 03/24/2025 9:08 AM CDT Pulse 58 03/24/2025 9:08 AM CDT Temperature 36.9 C (98.4 F) 03/14/2020 10:19 AM CDT Respiratory Rate 16 03/14/2020 10:19 AM CDT Oxygen Saturation 95% 03/24/2025 9:08 AM CDT Inhaled Oxygen Concentration - - Weight 69.9 kg (154 lb) 03/24/2025 9:08 AM CDT Height 160 cm (5' 3) 03/24/2025 9:08 AM CDT Body Mass Index 27.28 03/24/2025 9:08 AM CDT Plan of Treatment Health Maintenance Due Date Last Done Comments Depression Screening 1945 Fall Risk Assessment 1945 Hepatitis C Screening 1945 Osteoporosis Screening-Bone Density Scan 1945 DTaP/Tdap/Td Vaccine (1 - Tdap) 1956 Hepatitis B Screening 10/30/1963 Well Visit 65+ 2010 Pneumococcal vaccine 65+ (2 of 2 - PPSV23, PCV20, or PCV21) 05/11/2013 03/16/2013 Influenza Vaccine (#1) 2025 0, 03/11/2016, 03/07/2015, Additional history exists Zoster Vaccine Completed 03/29/2019, 12/27, 03/10/2017, Additional history exists Breast Cancer Screening-Mammogram Discontinued 11/05/2020, 06/28/2019, 06/24/2018, Additional history exists Procedures Procedure Name Priority Date/Time Associated Diagnosis Comments DEVICE CHECK - REMOTE Routine 04/17/2025 4:45 PM CDT Status post placement of implantable loop recorder Syncope and collapse PSVT (paroxysmal supraventricular tachycardia) DEVICE CHECK - REMOTE Routine 03/06/2025 2:54 PM CDT Status post placement of implantable loop recorder Syncope and collapse PSVT (paroxysmal supraventricular tachycardia) DEVICE CHECK - REMOTE Routine 01/24/2025 7:52 AM CDT Status post placement of implantable loop recorder Syncope and collapse PSVT (paroxysmal supraventricular tachycardia) SCREENING MAMMOGRAM BILATERAL W JOSE 11/05/2020 2:47 PM CDT from Last 3 Months or Most Recently Relevant to Health Maintenance Results * DEVICE CHECK - REMOTE (04/17/2025 4:45 PM CDT) Anatomical Region Laterality Modality Other Narrative 04/21/2025 12:33 PM CDT Macheen LNQ11 Loop Recorder. Dx; syncope, PSVT. DOI 09/25/2023-Fleissner. Barney remote Routine ILR remote. Normal device function. Battery function-OK. Presenting rhythm: NSR Medications: ASA 81 mg, candesartan 32 mg, hydralazine 50 mg, Toprol-XL 100 mg Counters since last scheduled transmission on 03/07/25. No auto or patient recorded episodes noted. See scanned report. [facility] remote f/u 05/29/25. Murray Patel RN Carlo Horne MD [facility] PROC EDURES Final Result * DEVICE CHECK - REMOTE (03/06/2025 2:54 PM CDT) Anatomical Region Laterality Modality Other Narrative 04/06/2025 11:39 AM CDT Medtronic LNQ11 Loop Recorder. Dx; syncope, PSVT. DOI 09/25/2023-Ozzie. [facility] remote Routine ILR remote. Normal device function. Battery function-OK. Presenting rhythm: NSR Medications: ASA 81 mg, candesartan 32 mg, Toprol-XL 100 mg Counters since last scheduled transmission on 01/24/25. No auto or patient recorded episodes noted. See scanned report. [facility] remote f/u 04/17/25. Murray Patel RN Carlo Horne MD CV CARDI[facility] SERVICES PROC EDURES Final Result * DEVICE CHECK - REMOTE (01/24/2025 7:52 AM CDT) Anatomical Region Laterality Modality Other Narrative 03/03/2025 12:39 PM CDT Medtronic LNQ11 Loop Recorder. Dx; syncope, PSVT. DOI 09/25/2023-Ozzie. [facility] remote Routine ILR remote. Normal device function. Battery function-OK. Presenting rhythm: NSR Medications: ASA 81 mg, candesartan 32 mg, Toprol-XL 100 mg Counters since last scheduled transmission on 12/13/24. No auto or patient recorded episodes noted. See scanned report. [facility] remote f/u 03/06/25. Murray Patel RN Carlo Horne MD CV CARDIAC SERVICES PROC EDURES Final Result * Screening Mammogram Bilateral W Jose (11/05/2020 2:47 PM CDT) Anatomical Region Laterality Modality Breast Bilateral Mammography 11/05/2020 3:05 PM CDT Narrative 11/05/2020 3:29 PM CDT Patient Name: RAY OCONNELLMONIQUE Oreilly Ordering Dr: Shoaib Smith MD D.O.B: 1945 Exam Date: 11/05/201446 Age: 75 Sex: Female MR#: [id number] Loc: RADIOLOGY REPORT Order #[id number] [facility] Franklyn Bilat Screening 3D Signed - MG BILATERAL DIGITAL SCREENING MAMMOGRAM 3D/2D WITH MEDIOLATERAL OBLIQUE CRANIOCAUDAL: 11/05/2020 The study was acquired using full field digital technology and interpreted from soft copy. 2D digital mammographic views, as well as 3D digital tomosynthesis were performed in the CC and MLO projections. CLINICAL: Routine mammogram. Denies any problems today. Personal history of breast cancer. No family history of breast cancer. COMPARISONS: Comparison is made to exams dated: 06/28/2019 mammogram, 06/24/2018 mammogram, 06/23/2017 mammogram, and 06/19/2016 mammogram - [facility]. BREAST TISSUE: There are scattered areas of fibroglandular density. FINDINGS: There are post operative findings in the left breast. No significant masses, calcifications, or other findings are seen in either breast. There has been no significant interval change. IMPRESSION: BI-RAD 1 NEGATIVE There is no mammographic evidence of malignancy. A 1 year screening mammogram is recommended. The patient has been or will be contacted. We recommend annual screening mammography for women at average risk of breast cancer beginning at age 40, based on guidelines of the [employer] (ACR Practice Parameter for the Performance of Screening and Diagnostic Mammography) and [employer] [employer]. For women with an elevated risk of breast cancer, please refer to the ACR Practice Parameter for specific screening recommendations. The patient will be entered into a reminder system with a target due date of 1 year for her next screening exam. Electronically signed by: Jorge Florez M.D. ab/penrad:11/05/2020 15:29:58 Local Company Hazmat Driver: Cristel Carrizales [facility] letter sent: Normal Exam Reading location: BI-RADS: 1 Negative REPORT ELECTRONICALLY SIGNED IN OTHER VENDOR SYSTEM Resulting Agency Comment O Procedure Note Jorge Florez MD - 11/05/2020 Patient Name: TERRI OCONNELL Caridad Dr: Shoaib Smith MD D.O.B: 1945 Exam Date: 11/05/20 1447 Age: 75 Sex: Female MR#: [id number] Loc: RADIOLOGY REPORT Order #[id number] [facility] Franklyn Bilat Screening 3D Signed - MG BILATERAL DIGITAL SCREENING MAMMOGRAM 3D/2D WITH MEDIOLATERAL OBLIQUE CRANIOCAUDAL: 11/05/2020 The study was acquired using full field digital technology andinterpreted from soft copy. 2D digital mammographic views, as well as 3D digital tomosynthesis were performed in the CC and MLO projections. CLINICAL: Routine mammogram. Denies any problems today. Personal historyof breast cancer. No family history of breast cancer. COMPARISONS: Comparison is made to exams dated: 06/28/2019 mammogram, 06/24/2018 mammogram, 06/23/2017 mammogram, and 06/19/2016 [facility]ogram [facility]. BREAST TISSUE: There are scattered areas of fibroglandular density. FINDINGS: There are post operative findings in the left breast. No significant masses, calcifications, or other findings are seen ineither breast. There has been no significant interval change. IMPRESSION: BI-RAD 1 NEGATIVE There is no mammographic evidence of malignancy. A 1 year screeningmammogram is recommended. The patient has been or will be contacted. We recommend annual screening mammography for women at average risk ofbreast cancer beginning at age 40, based on guidelines of the [employer] (ACR Practice Parameter for the Performance of Screening and Diagnostic Mammography) and [employer]. For women with an elevated risk of breast cancer, pleaserefer to the ACR Practice Parameter for specific screening recommendations. The patient will be entered into a reminder system with a target due dateof 1 year for her next screening exam. Electronically signed by: Jorge valera/omayra:11/05/2020 15:29:58 Local Company Hazmat Driver: Katey [facility] letter sent: Normal Exam Reading location: BI-RADS: 1 Negative REPORT ELECTRONICALLY SIGNED IN OTHER VENDOR SYSTEM Shoaib Smith MD IMG MAMMO PROCEDURES Final Res ult from Last 3 Months or Most Recently Relevant to Health Maintenance Insurance MEDICARE Member Subscriber Plan / Payer ( fective 2010-Present) Name:Terri Oconnell Member ID:[id number] Relation to Subscriber:Self Name:Terri Oconnell Subscriber ID:[id number] Payer ID:[id number] Group ID:Not on file Type:MEDICARE TRADITIONAL Address: [place] [id number] [employer] [facility] MEDICARE MEDICARE LOCAL [facility] H & W MCR SUPPLEMENT Care Teams Electronics Engineering Professor Relationship Specialty Start Date End Date Sebastian Solano MD PCP - General Family Practice 03/10/23
--- OUTSIDE RECORDS SUMMARY | 2025-04-26 08:15 | XMS_ITS | Encounter Summary ---
Author Organization [facility] Address [address] [place] [address] Care Team Providers Care Digital Media Intern Name Role Phone Sebastian Solano MD Primary Care Provider [phone] Encounter Details Date Type Department Care Team (Late st Contact Info) Description 04/24/2025 Orders Only [facility] Oncology and Hematology [facility] [address] [place] [address] Jarad Quintero MD [address] [employer] [address] [phone] Chronic anemia Social History Tobacco Use Types Packs/Day Years [...] Orientation Straight 04/27/2024 6: 27 AM CDT documented as of this encounter Plan of Treatment Upcoming Encounters Date Type Department Care Team (Late st Contact Info) Description 07/24/2025 9:00 AM TECHNICIAN TRAINEE Office Visit [facility] Oncology and Hematology - [place] [address] [place] [address] Jarad Quintero MD [address] [employer] [address] [place] [phone] documented as of this encounter Visit Diagnoses Diagnosis Chronic anemia Anemia, unspecified documented in this encounter Care Teams Digital Media Intern Relationship Specialty Start Date End Date Sebastian Solano MD [address] [place] [phone] PCP - General Family Practice 01/06/23 documented as of this encounter
--- OUTSIDE RECORDS SUMMARY | 2025-04-26 08:15 | XMS_ITS | Clinical Summary ---
Author Organization [facility] Address [address] [place] [address] Care Team Providers Care Insurance Claims Assistant Name Role Phone None, Provider MD Primary Care Provider Unavaila ble Social History Tobacco Use Types Packs/Day Years Used Date Smoking Tobacco: Never Assessed Comments Unknown Sex and Gender Information Value Date Recorded Sex Assigned at Not on file Legal Sex Female 5:15 PM CDT Gender Identity Not on file Sexual Orientation Not on file Plan of Treatment Health Maintenance Due Date Last Done Comments Hepatitis C 10/30/1963 DTaP, Tdap and Td Vaccines (1 - Tdap) 1964 Pneumococcal Vaccine: 50+ Years (1 of 1 - PCV) 10/30/1995 Annual Medicare Wellness Visit 2010 Dexa Scan (General) 2010 RSV Immunization or 60+ Years (1 - 1-dose 75+ series) 2020 COVID-19 Vaccine ( - 2024- season) 2025 Influenza Adult (#1) 2025 03/11/2016, 03/07/2015, 02/08/2013 Zoster Vaccines Completed 03/29/2019, 12/27, 03/10/2017, Additional history exists Hepatitis A Vaccines Aged Out No long er eligible based on patient's age to complete this topic Meningococcal B Vaccine Aged Out No l onger eligible based on patient's age to complete this topic Meningococcal Vaccine Aged Out No brayan cole eligible based on patient's age to complete this topic RSV Immunizations Under 20 Months Aged Out No longer eligible based on patient's age to complete this topic Insurance MEDICARE Care Teams Insurance Claims Assistant Relationship Specialty Start Date End Date None, Provider, PCP - General 03/29/19
== END 2025-04-26 08:06 | disposition home or self-care (01) ==
LOC: ANHFOHIMG 08:07
PROVIDERS: PCP Nurse Practitioner Family; Visit Provider Internal Medicine Hematology & Oncology
DX: Z12.31 Encounter for screening mammogram for malignant neoplasm of breast (principal); R92.8 Other abnormal and inconclusive findings on diagnostic imaging of breast
CPT/HCPCS: 77063; 77067

== ENCOUNTER 2025-06-08 11:20 | Outpatient (CLI) | payer MEDICARE, OTHER, SELFPAY ==
--- NOTE | ~2025-06-08 | MMUS_ITS ---
EXAMINATION: US breast RT limited, MM diagnostic rose RT w mich HISTORY: Additional imaging TECHNIQUE: Craniocaudal and mediolateral oblique 3-D tomosynthesis images were obtained and synthetic 2-D images were generated. CAD analysis was submitted and interpreted. Grayscale sonography over the area(s) of interest with color Doppler if there is a finding. COMPARISON: Mammogram from April 26. Older prior studies dating back to 2021. BREAST PARENCHYMAL COMPOSITION: Dense: The breasts are heterogeneously dense MAMMOGRAM FINDINGS: Most of the findings questioned on the screening study do not persist on additional imaging, consistent with compression artifact. There does appear to be a small circumscribed mass, superficial in location, at approximately 10:00. There are no suspicious calcifications. No unexplained architectural distortion is seen. There are no skin or nipple abnormalities identified. There is no adenopathy seen on the images submitted. ULTRASOUND FINDINGS: A circumscribed hypoechoic oval nodule was seen at 10:00 superficially at first. Then it was thought that there may be several hypoechoic areas/structures within a larger echogenic structure. If the latter is the case, the maximum dimension is 13 mm. If the former is the case, the maximum dimension is 6 mm. Regardless, this area/structure is very likely benign. IMPRESSION: 6 month follow-up ultrasound only through this region is recommended. BI-RADS 3 - Probably benign - short-term follow-up is recommended. Reviewed, dictated and finalized at location C. OSIVE ORDNANCE DISPOSAL SPECIALIST IMPRESSION: 6 month follow-up ultrasound only through this region is recommended. BI-RADS 3 - Probably benign - short-term follow-up is recommended.
== END 2025-06-08 11:21 | disposition home or self-care (01) ==
LOC: ANHFOHIMG 11:22
PROVIDERS: PCP Nurse Practitioner Family; Visit Provider Internal Medicine Hematology & Oncology
DX: R92.8 Other abnormal and inconclusive findings on diagnostic imaging of breast (principal)
CPT/HCPCS: 76642; 77061; 77065; G0279